=== PATIENT | female | born 1975 ===

== ENCOUNTER 2023-05-09 13:41 | Outpatient (REF) | payer MEDICAID, SELFPAY ==
--- NOTE | ~2023-05-09 | MR_ITS ---
MR BRAIN WITHOUT AND WITH CONTRAST CLINICAL INFORMATION: Epilepsy. COMPARISON: None available at the time of dictation. TECHNIQUE: Multiplanar, multisequence MRI of the brain was obtained before and after the intravenous administration of 8.5 mL Gadavist. FINDINGS: There is no pathologic intracranial enhancement. Incidental small choroid fissure cyst on the right side. No mesial temporal sclerosis. No parenchymal signal abnormality. There is no hydrocephalus, extra-axial surface collection, or herniation. The major flow voids at the skull base are preserved. There is no acute infarct on diffusion-weighted imaging. There is no intracranial hemorrhage on the gradient recalled echo acquisition. The midline structures are normal. There is normal variant 4 mm cerebellar tonsillar ectopia without true Chiari malformation. The craniocervical junction is normal. Osseous marrow signal intensity is homogenous. The visualized soft tissues are unremarkable. MR/MR head/brain wo/w con IMPRESSION: Unremarkable MRI of the brain. No seizure foci and no pathologic enhancement intracranially.
[2023-05-09] MEDS: gadobutroL 10 ML VIAL IVPUSH (15:29)
== END 2023-05-09 13:42 | disposition home or self-care (01) ==
LOC: HO.MRI 13:41
PROVIDERS: Visit Provider Psychiatry & Neurology Neurology
DX: G40.909 Epilepsy, unspecified, not intractable, without status epilepticus (principal)
CPT/HCPCS: 70553; A9585

== ENCOUNTER 2023-12-29 07:51 | Outpatient (AMB) | payer MEDICAID, SELFPAY ==
--- NOTE | 2023-12-29 07:53 | A.OFFVIS_ITS ---
Vital Signs 12/29/23 08:05 Height 5 ft 2 in Weight 188 lb 11.451 oz BMI 34.5 BP 120/72 Blood Pressure Location Lt brachial Position Sitting Pulse 69 Pulse Source Pulse Oximeter Pulse Oximetry (%) 96 Oxygen Delivery Method Room Air Intake Visit Reasons: Joint Pain Intake Note: Patient presents for joint pain. Feel pain everywhere. I been in pain for 8 years now. Using Gabapentin 800 mg x3 a day. Medicine works some times. Allergies penicillin Allergy (Mild, Uncoded 12/15/23 14:19) Rash Medication List - Last Reconciled 12/29/23 by Kisha Reyes MD acetaminophen 1,000 mg PO Q6H PRN atorvastatin 40 mg PO DAILY esomeprazole magnesium 40 mg PO QAM gabapentin 400 mg PO TID gabapentin 800 mg PO TID levetiracetam 500 mg PO BID olanzapine 2.5 mg PO BEDTIME propranolol ER 60 mg PO DAILY sertraline 100 mg PO DAILY HPI Comments Details: Patient is a 48-year-old female with hyperlipidemia and depression who presents today for evaluation of polyarthralgias. Patient states that she can last for called being well in her teenage years. On since age 13 she has noted intermittent body and joint pains which has been progressing over the years. She does note that the pain is worse when she is going through psychological stressors. States that some days she feels like she can not even get out of bed and she can not even move. 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 She does report morning stiffness but states that this lasts all day regardless of her movement. She denies Raynaud's, rash, photosensitivity, eye pain or inflammation, oral or nasal ulcers, skin tightening, alopecia. She has 3 children 1 daughter 2 sons, she denies any history of recurrent 2nd trimester losses or preeclampsia. She denies any history of VTE No family history of any autoimmune disease such as rheumatoid arthritis or lupus. But she does have a sister that also has fibromyalgia. [facility] Medical History (Updated 12/29/23 @ 08:46 by Kisha Reyes MD) Polyarthralgia Family History (Updated 12/29/23 @ 08:04 by GRAYSON Garcia) Father Cancer Mother Diabetes Fibromyalgia Alzheimer dementia Social History (Updated 12/29/23 @ 08:05 by GRAYSON Garcia) Household Members: Children Housing: Apartment Alcohol intake: current Comment: Occassionally Patient Tobacco Use Status: Never used Tobacco [facility] Medical History (Updated 12/29/23 @ 08:46 by Kisha Reyes MD) Polyarthralgia Family History (Updated 12/29/23 @ 08:04 by GRAYSON Garcia) Father Cancer Mother Diabetes Fibromyalgia Alzheimer dementia Social History (Updated 12/29/23 @ 08:05 by GRAYSON Garcia) Household Members: Children Housing: Apartment Alcohol intake: current Comment: Occassionally Patient Tobacco Use Status: Never used Tobacco Review of Systems Const Details: Review of Systems Constitutional: Denies fever, chills, weight loss ENT: Denies vision changes, eye pain or eye redness, dental caries, dry mouth GI: Denies nausea, vomiting, diarrhea, abdominal pain, change in BM Pulm: Denies SOB, TAM, hemoptysis, wheezing Cards: Denies chest pain, palpitations Skin: Denies Raynaud's, rash, nail changes, photosensitivity, 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 Denies joint swelling, muscle weakness, bone pain All other systems reviewed and are unremarkable except noted above Physical Exam Vital Signs: Last Vital Signs Pulse 69 12/29/23 08:05 BP 120/72 12/29/23 08:05 Pulse Ox 96 12/29/23 08:05 Oxygen Delivery Method Room Air 12/29/23 08:05 BMI result Body Mass Index 34.5 Const Other: Physical Examination Patient well appearing Able to rise from chair without support. But complained of pain to her legs. ?Gait normal. Constitutional: ?Mucous membranes pink and moist patient alert and cooperative. No oral or nasal ulcers noted. HEENT: ?Conjunctiva and sclera clear. ?Pupils equal round and reactive to light. ?No lymphadenopathy. ?Normal dentition. Resp: ?Normal respiratory effort and able to speak in complete sentences. ?Clear to auscultation bilaterally. ?No crackles, rales, rhonchi, wheezes heard. Cards: ?Regular rate and rhythm. ?S1 and S2 heard no murmurs. ?Radial pulses intact bilaterally MSK: ?No deformity noted. There was some mild swelling to her PIP is throughout bilateral hands. No obvious warmth however there was tenderness to palpation of the MCPs on the right and left hand. This was in addition to pain when palpating any other part of her hand but she specifically noted pain when palpating the MCPs. ?Able to have full range of motion in all joints though this was limited a bit by pain. Fibromyalgia tender points positive. Positive squeeze test and MTPs tender to palpation bilateral feet Skin: Normal nail fold capillaries General: no acute distress Results Reviewed Results Reviewed: No results in chart to review Assessment & Plan Assessment & Plan (1) Polyarthralgia: Code(s): M25.50 - Pain in unspecified joint Category: Medical Plan: Patient is a 48-year-old female who is here for evaluation of whole-body pain. She definitely has a diagnosis of fibromyalgia given her poor sleep hygiene, pain worse with psychological stressors, and positive fibromyalgia tender points. However given the significant tenderness of her MCPs and MTPs there is concern that there may be an underlying inflammatory process. As such will check for inflammatory markers as well as autoimmune serologies including rheumatoid factor and anti CCP. Low suspicion of lupus but will still check ANDIE without VARINDER panel. Low suspicion of antiphospholipid syndrome with that be thrombotic or obstetric given no history of unprovoked thrombosis or recurrent losses. Discussed with patient at length the possibility that she may just have a diagnosis of fibromyalgia and that this is a difficult disease to treat. However given her significant pain today we will give a trial of Medrol 12 mg for 1 week then 8 mg for 1 week then 4 mg for 1 week then stop which is equivalent to 15 mg of prednisone for 1 week then 10 mg of prednisone for 1 week then 5 mg of prednisolone for 1 week then stop. Will see patient in 2 weeks to discuss lab results as well as x-rays. (2) Fibromyalgia: Code(s): M79.7 - Fibromyalgia Plan: Patient has a diagnosis of fibromyalgia based on her poor sleep hygiene, positive fibromyalgia tender points, worsening pain with physiological stressors. Information given about fibromyalgia. Had a long discussion with patient about the diagnosis of fibromyalgia and how it is mainly managed by conservative means and not medication. We will further discuss treatment after her trial of prednisone and the blood work. 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 Thyroid Stimulating Hormone Today M1.90 - Unspecified osteoarthritis, unspecified site, M25.50 - Pain in unspecified joint, M79.7 - Fibromyalgia UA w Microscopic Today M1.90 - Unspecified osteoarthritis, unspecified site, M25.50 - Pain in unspecified joint, M79.7 - Fibromyalgia Protein Creatinine Ratio, Ur Today M1.90 - Unspecified osteoarthritis, unspecified site, M25.50 - Pain in unspecified joint, M79.7 - Fibromyalgia XR hand wrist LT Today M1.90 - Unspecified osteoarthritis, unspecified site, M25.50 - Pain in unspecified joint, M79.7 - Fibromyalgia XR hand wrist RT Today M1.90 - Unspecified osteoarthritis, unspecified site, M25.50 - Pain in unspecified joint, M79.7 - Fibromyalgia XR foot LT min 3V Today M1.90 - Unspecified osteoarthritis, unspecified site, M25.50 - Pain in unspecified joint, M79.7 - Fibromyalgia Hemoglobin A1c Today M1.90 - Unspecified osteoarthritis, unspecified site, M25.50 - Pain in unspecified joint, M79.7 - Fibromyalgia Rheumatoid Factor Today M1.90 - Unspecified osteoarthritis, unspecified site, M25.50 - Pain in unspecified joint, M79.7 - Fibromyalgia Comprehensive Met. Panel Today M1.90 - Unspecified osteoarthritis, unspecified site, M25.50 - Pain in unspecified joint, M79.7 - Fibromyalgia Erythrocyte Sedimentation Rate Today M1. - Unspecified osteoarthritis, unspecified site, M25.50 - Pain in unspecified joint, M79.7 - Fibromyalgia C Reactive Protein Today M1.90 - Unspecified osteoarthritis, unspecified site, M25.50 - Pain in unspecified joint, M79.7 - Fibromyalgia ANDIE Reflex Titer and Pattern Today M1.90 - Unspecified osteoarthritis, unspecified site, M25.50 - Pain in unspecified joint, M79.7 - Fibromyalgia XR foot RT min 3V Today M1.90 - Unspecified osteoarthritis, unspecified site, M25.50 - Pain in unspecified joint, M79.7 - Fibromyalgia Cyclic Citrullinated Peptide Today M19.90 - Unspecified osteoarthritis, unspecified site, M25.50 - Pain in unspecified joint, M79.7 - Fibromyalgia Medications: New methylprednisolone (Medrol) Take 3 tablets daily for 7 days then take 2 tablets daily for 7 days then take 1 tablet daily for 7 days 4 mg PO DAILY 4 weeks 28 tabs 0RF joint pain Coding Level of Care Code New Pt Level 5 (84940) Diagnoses Polyarthralgia M25.50 Fibromyalgia M79.7
[2023-12-29 08:05] VITALS: BP 120/72; PULSE 69; O2SAT 96; BMI 34.5
== END 2023-12-29 08:50 | disposition home or self-care (01) ==
PROVIDERS: PCP Nurse Practitioner Family; Referring Provider Nurse Practitioner Family; Visit Provider Student in an Organized Health Care Education/Training Program
DX: M79.7 Fibromyalgia (principal); M25.59 Pain in other specified joint
CPT/HCPCS: 99205

== ENCOUNTER 2023-12-29 07:51 | Outpatient (REF) | payer MEDICAID, SELFPAY ==
--- NOTE | ~2023-12-29 | XR_ITS ---
EXAMINATION: XR FOOT, RIGHT CLINICAL INFORMATION: M25.50 - Pain in unspecified joint COMPARISON: None available. TECHNIQUE: AP, lateral, and oblique views of the right foot. FINDINGS: No fracture, dislocation, or suspicious bone lesion. There is normal alignment. No subluxation. Normal plantar arch. There are mild osteoarthritis noted at the first MTP joint and interphalangeal joint of the hallux. Mild spurring of the medial eminence of the first metatarsal head, in keeping with small bunion. Otherwise, the midfoot, hindfoot, forefoot appear normal. There is a tiny dorsal and tiny plantar calcaneal spur. No soft tissue abnormalities. XR/XR foot RT min 3V IMPRESSION: 1. No acute findings right foot. 2. Mild osteoarthritis in the interphalangeal joint of the hallux, and first MTP joint. Small bunion. 2. Tiny dorsal and plantar calcaneal spurs. Electronically signed by: Jack Andino MD 03/08/2024 01:18 PM [facility]
--- NOTE | ~2023-12-29 | XR_ITS ---
EXAMINATION: XR HAND/WRIST, LEFT CLINICAL INFORMATION: M25.50 - Pain in unspecified joint COMPARISON: None available. TECHNIQUE: PA, lateral, oblique, and scaphoid views of the left hand and wrist. FINDINGS: No fracture, dislocation, or suspicious bone lesion. Normal alignment of the hand and wrist. Carpal bones intact, normally aligned. Joint spaces preserved. No periarticular osteopenia or evidence of erosions. Scaphoid views normal. Normal soft tissues. XR/XR hand wrist LT IMPRESSION: Normal radiographs of the left hand and wrist. Electronically signed by: Jack Andino MD 03/08/2024 01:23 PM [facility]
--- NOTE | ~2023-12-29 | XR_ITS ---
EXAMINATION: XR FOOT, LEFT CLINICAL INFORMATION: M25.50 - Pain in unspecified joint COMPARISON: None available. TECHNIQUE: AP, lateral, and oblique views of the left foot. FINDINGS: No fracture, dislocation, or suspicious bone lesion. There is normal alignment. No subluxation. Normal plantar arch. There are mild osteoarthritis noted at the first MTP joint and interphalangeal joint of the hallux. Otherwise, the midfoot, hindfoot, forefoot appear normal. There is a small dorsal and small plantar calcaneal spur. No soft tissue abnormalities. XR/XR foot LT min 3V IMPRESSION: 1. No acute findings left foot. 2. Mild osteoarthritis in the interphalangeal joint of the hallux, and first MTP joint. 2. Small dorsal and plantar calcaneal spurs. Electronically signed by: Jack Andino MD 03/08/2024 01:16 PM [facility]
--- NOTE | ~2023-12-29 | XR_ITS ---
EXAMINATION: XR HAND/WRIST, RIGHT CLINICAL INFORMATION: M25.50 - Pain in unspecified joint COMPARISON: None available. TECHNIQUE: PA, lateral, and oblique views of the right hand and wrist. FINDINGS: No fracture, dislocation, or suspicious bone lesion. Normal alignment of the hand and wrist. Carpal bones intact, normally aligned. Joint spaces preserved. No periarticular osteopenia or evidence of erosions. Very mild osteoarthritis in the STT joints. Scaphoid view is normal. Normal soft tissues. XR/XR hand wrist RT IMPRESSION: 1. No acute findings of the right hand and wrist. 2. Very mild osteoarthritis of STT joints. Electronically signed by: Jack Andino MD 03/08/2024 01:30 PM [facility]
[2023-12-29 09:27] LABS: MANUAL DIFF FLAG NO
[2023-12-29 09:34] LABS: Basophils Percent Auto 0.6 % (0-2); Eosinophils Absolute Auto 0.3 X10*3/uL (0.0-0.4); Eosinophils Percent Auto 4.6 % (0-4); Hemoglobin 11.5 g/dl (12.0-16.0); Imm Gran Abs Auto 0.03 X10*3/uL (0.00-0.03); Imm Gran Pct Auto 0.6 % (0.0-0.4); Lymphocytes Absolute Auto 2.4 X10*3/uL (1.2-4.9); Lymphocytes Percent Auto 43.6 % (20-40); Mean Corpuscular HGB Conc 31.9 g/dl (31.0-35.0); Mean Corpuscular Volume 87.6 fL (80.0-98.0); Mean Platelet Volume 11.5 fL (9.4-12.3); Monocytes Absolute Auto 0.4 X10*3/uL (0.1-1.2); Monocytes Percent Auto 8.2 % (2-11); Neutrophils Absolute Auto 2.3 x10*3/uL (2.0-8.3); Neutrophils Percent Auto 42.4 % (45-73); Platelet Count 231 X10*3/uL (160-400); Red Blood Count 4.11 X10*6/uL (4.20-5.50); Red Cell Distribution Width 12.8 % (11.0-16.0); White Blood Count 5.4 X10*3/uL (4.8-10.8)
[2023-12-29 10:07] LABS: Estimated Average Glucose 128 mg/dL; Hemoglobin A1c % 6.1 % (<6.0)
[2023-12-29 10:13] LABS: Erythrocyte Sedimentation Rate 23 MM/HR (0-20)
[2023-12-29 10:15] LABS: Alanine Aminotransferase 12 U/L (0-31); Albumin Level 4.2 g/dL (3.5-5.0); Alkaline Phosphatase 71 U/L (39-117); Anion Gap 10 (12-20); Aspartate Amino Transferase 14 U/L (5-31); Bilirubin Total 0.4 mg/dL (0.0-1.0); Blood Urea Nitrogen 11 mg/dL (9-16); C Reactive Protein 0.23 mg/dL (< or = 0.50); Calcium 9.5 mg/dL (8.4-10.2); Carbon Dioxide 30 mmol/L (22-29); Chloride 106 mmol/L (96-108); Estimated Glomerular Filt Rate > 60; Glucose Random 119 mg/dL (60-115); Potassium 3.9 mmol/L (3.3-5.1); Sodium 142 mmol/L (135-145); Total Protein 7.4 g/dL (6.5-8.0)
[2023-12-29 10:18] LABS: Rheumatoid Factor < 13.0 IU/mL (<15.0)
[2023-12-29 10:30] LABS: Thyroid Stimulating Hormone 0.98 uIU/mL (0.32-4.0)
[2023-12-29 10:44] LABS: Appearance Urine Clear; Color Urine Yellow; Glucose Urine UA Negative (Negative); Leukocyte Esterase Urine Trace (Negative); Nitrite Urine Negative (Negative); PH 6.5 (5.0-9.0); Specific Gravity - Urine 1.025 (1.005-1.025); UMIC TRIGGER UA YES; Urine Blood Negative (Negative); Urine Ketones Negative (Negative); Urine Protein Negative (Neg-Trace)
[2023-12-29 10:50] LABS: Bacteria Urine None Seen (None Seen); Hyaline Casts Urine 0-2 /LPF (0-2); RBC Urine 0-2 /HPF (0-2); Squamous Epithelial Cell Urine 0-2 /HPF (0-2)
[2023-12-29 11:20] LABS: Creatinine Urine 191.39 mg/dL; Protein/Creatinine Ratio, Ur 0.05 (<0.2); Total Protein Urine Random 10 mg/dL (<12)
[2024-01-01 14:59] LABS: Anti Nuclear Antibody Screen NEGATIVE (NEGATIVE)
[2024-01-02 13:09] LABS: Cyclic Citrullinated Peptide <16 UNITS
== END 2023-12-29 07:52 | disposition home or self-care (01) ==
LOC: HO.XRAY 07:51
PROVIDERS: PCP Nurse Practitioner Family; Referring Provider Nurse Practitioner Family; Visit Provider Student in an Organized Health Care Education/Training Program
DX: M25.50 Pain in unspecified joint (principal); M19.90 Unspecified osteoarthritis, unspecified site; M79.7 Fibromyalgia; Z79.899 Other long term (current) drug therapy
CPT/HCPCS: 36415; 73110; 73130; 73630; 80053; 81001; 82570; 83036; 84156; 84443; 85025; 85652; 86038; 86140; 86200; 86431; 99202

== ENCOUNTER → 2023-12-29 09:30 | Outpatient (BNV) | payer MEDICAID, SELFPAY | PROVIDERS: PCP Nurse Practitioner Family; Referring Provider Nurse Practitioner Family; Visit Provider Radiology Diagnostic Radiology | DX: M79.671 Pain in right foot (principal); M79.672 Pain in left foot | CPT/HCPCS: 73630 ==

== ENCOUNTER 2024-01-16 08:10 | Outpatient (AMB) | payer MEDICAID, SELFPAY ==
[2024-01-16 08:12] VITALS: BP 122/72; PULSE 62; O2SAT 97; BMI 34.2
--- NOTE | 2024-01-16 08:12 | MHC.OFFVIS ---
Vital Signs 01/16/24 08:12 Height 5 ft 2 in Weight 187 lb BMI 34.2 BP 122/72 Blood Pressure Location Lt brachial Position Sitting Pulse 62 Pulse Source Pulse Oximeter Pulse Oximetry (%) 97 Oxygen Delivery Method Room Air Intake Visit Reasons: joint pain Intake Note: Patient is a new patient externally referred for joint pain. She states it's been going on for years, and has fibromyalgia, too. She takes Gabapentin and Ibuprofen for the pain. Allergies penicillin Allergy (Mild, Uncoded 01/16/24 08:15) Rash Medication List - Last Reconciled 01/16/24 by Kisha Reyes MD acetaminophen 1,000 mg PO Q6H PRN atorvastatin 40 mg PO DAILY esomeprazole magnesium 40 mg PO QAM gabapentin 400 mg PO TID gabapentin 800 mg PO TID levetiracetam 500 mg PO BID methylprednisolone (Medrol) 4 mg PO DAILY 4 weeks olanzapine 2.5 mg PO BEDTIME propranolol ER 60 mg PO DAILY sertraline 100 mg PO DAILY HPI Comments Details: Patient is a 48-year-old female with hyperlipidemia and depression who returns today for evaluation of polyarthralgias. Interval History: Patient seen 12/29/2023 with myself. At that time she was referred for polyarthralgias. Evaluation at that time revealed some tenderness to palpation of her PIPs and MCPs as well as positive fibromyalgia tender points. Given her concomitant MCP involvement she was trialled on a Medrol Dosepak. And labs were ordered. Today she returns stating that the Medrol did not help. She would have to take it with 800 mg ibuprofen to get any relief. Her symptoms are still the same reporting poor sleep, widespread pain, fatigue with concomitant psychosocial stressors partly because of her pain and inability to work. Rheumatologic History: Patient presented for evaluation 12/29/23. At that time she reported a longstanding history of intermittent body and joint pains since age of 13. 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 She denies Raynaud's, rash, photosensitivity, eye pain or inflammation, oral or nasal ulcers, skin tightening, alopecia. She has 3 children 1 daughter 2 sons, she denies any history of recurrent 2nd trimester losses or preeclampsia. She denies any history of VTE No family history of any autoimmune disease such as rheumatoid arthritis or lupus. But she does have a sister that also has fibromyalgia. 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 major depressive disorder Hyperthyroidism Multiple thyroid nodules Colon cancer screening Enlarged liver Kidney cysts Pap smear for cervical cancer screening Mixed hyperlipidemia Prediabetes Cough Acute gastritis without bleeding Radiculopathy of lumbar region Adjustment disorder with mixed anxiety and depressed mood Obesity Epigastric pain PTSD (post-traumatic stress disorder) Polyarthralgia Family History Father Cancer Mother Diabetes Fibromyalgia Alzheimer dementia Social History Household Members: Children Housing: Apartment Alcohol intake: current Comment: Occassionally Patient Tobacco Use Status: Never used Tobacco Review of Systems Const Details: Review of Systems Constitutional: Denies fever, chills, weight loss ENT: Denies vision changes, eye pain or eye redness, dental caries, dry mouth GI: Denies nausea, vomiting, diarrhea, abdominal pain, change in BM Pulm: Denies SOB, TAM, hemoptysis, wheezing Cards: Denies chest pain, palpitations Skin: Denies Raynaud's, rash, nail changes, photosensitivity, [employer] 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 ?Gait normal. Constitutional Mucous membranes pink and moist patient alert and cooperative HEENT Conjunctiva and sclera clear. ?Pupils equal round and reactive to light. ?No lymphadenopathy. ?Normal dentition. Respiratory System Normal respiratory effort and able to speak in complete sentences. ?Clear to auscultation bilaterally. ?No crackles, rales, rhonchi, wheezes heard. Cardiac System Regular rate and rhythm. ?S1 and S2 heard no murmurs. ?Radial pulses intact bilaterally MSK No deformity, swelling, abnormalities noted to bilateral hands. Patient with widespread pain including joints as well as areas between the joints. Positive fibromyalgia tender points. Results Reviewed Results Reviewed: Laboratory Tests 12/29/23 12/29/23 09:26 09:29 WBC 5.4 RBC 4.11 L Hgb 11.5 L Hct 36.0 L Plt Count 231 ESR 23 H Sodium 142 Potassium 3.9 Chloride 106 Carbon Dioxide 30 H BUN 11 Creatinine 0.78 Calcium 9.5 Total Bilirubin 0.4 AST 14 ALT 12 Alkaline Phosphatase 71 C-Reactive Protein 0.23 Total Protein 7.4 Albumin 4.2 TSH 0.98 Urine Color Yellow Urine Appearance Clear Urine pH 6.5 Ur Specific [place] 1.025 Urine Protein Negative Urine Glucose (UA) Negative Urine Ketones Negative Urine Blood Negative Urine Nitrite Negative Protein/Creatinin Ratio 0.05 Rheumatoid Factor < 13.0 Cycl Citrul Peptide IgG <16 ANDIE Screen NEGATIVE X-rays ordered at last visit reviewed. No evidence of joint space narrowing, carpal crowding or erosions to bilateral hands. Also no evidence of erosions or joint space narrowing to bilateral feet. No evidence of chondrocalcinosis in the TFCC. Otherwise normal radiographs of hand and feet Assessment & Plan Assessment & Plan (1) Fibromyalgia: Code(s): M79.7 - Fibromyalgia Category: Medical Plan: #Fibromyalgia Patient with a diagnosis of fibromyalgia. This is confirmed based on her lack of inflammation markers and unremarkable antibody profile. Also her exam is consistent with fibromyalgia. Had a long discussion with patient that fibromyalgia is a difficult disease to treat and there is no medication to treat this disease. Discussed that lifestyle changes is the most important thing for this disease. In the meantime we will stop gabapentin and trial pregabalin as well as cyclobenzaprine to see if this will help with her pain. Ordered a sleep study to rule out obstructive sleep apnea as a cause for poor sleep. We will reach out to her psychiatrist at [facility] about possibly changing her sertraline to duloxetine. We will review in 3 months. Plan I spent 35 minutes reviewing the record and labs, seeing the patient, discussing the treatment plan, contacting [facility] to discuss medication changes and documenting in the medical record Orders: Orders RT home sleep study Today G47.30 - Sleep apnea, unspecified Referrals Pain Management Referral M79.7 - Fibromyalgia Medications: New cyclobenzaprine 5 mg PO BEDTIME 30 tabs 0RF M79.7 - Fibromyalgia pregabalin Take 1 tablet at bedtime for 2 weeks then 2 tablets for 2 weeks then 3 tablets 60 days 150 mg (3 x 50 mg) PO BEDTIME 270 caps 0RF 90 days M79.7 - Fibromyalgia Discontinued methylprednisolone (Medrol) Take 3 tablets daily for 7 days then take 2 tablets daily for 7 days then take 1 tablet daily for 7 days Discontinued Reason: None 4 mg PO DAILY 4 weeks 28 tabs 0RF joint pain Coding Level of Care Code Est Pt Level 4 (38819) Diagnoses Fibromyalgia M79.7
== END 2024-01-16 08:58 | disposition home or self-care (01) ==
PROVIDERS: PCP Nurse Practitioner Family; Visit Provider Student in an Organized Health Care Education/Training Program
DX: M79.7 Fibromyalgia (principal)
CPT/HCPCS: 99214

== ENCOUNTER → 2024-01-16 08:10 | Outpatient (BNVA) | payer MEDICAID, SELFPAY | PROVIDERS: PCP Nurse Practitioner Family; Visit Provider Student in an Organized Health Care Education/Training Program | DX: M79.7 Fibromyalgia (principal); G47.30 Sleep apnea, unspecified; M25.50 Pain in unspecified joint | CPT/HCPCS: 99212 ==

== ENCOUNTER 2024-02-01 10:28 | Outpatient (AMB) | payer MEDICAID, SELFPAY ==
--- NOTE | 2024-02-01 10:31 | A.OFFVIS_ITS ---
Vital Signs 02/01/24 10:39 Height 5 ft 2 in Weight 188 lb 4 oz BMI 34.4 BP 118/64 Blood Pressure Location Rt brachial Position Sitting Pulse 54 Pulse Source Pulse Oximeter Pulse Oximetry (%) 99 Oxygen Delivery Method Room Air Intake Visit Reasons: Fibromyalgia Intake Note: Pain today 11/10 Train Control Electronic Technician Required: No Accompanied by: Self / Same As Patient Allergies Penicillins Allergy (Unknown, Verified 02/01/24 10:39) Rash HPI HPI Fibromyalgia: Details: Patient is a pleasant 48-year-old female with history of depression, anxiety, seizures, h/o asthma, PTSD, and polyarthralgias presents today for initial evaluation for fibromyalgia. She has been referred to our office by Rheumatology provider. Patient reports widespread body pain affecting her upper and lower extremities but most significantly lower back pain. Denies any recent trauma, injury or falls. Patient reports fibromyalgia flare ups are most severe with psychological stresses, movements, and cold weather changes. 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 Low back pain is mostly axial and does not radiate to the lower extremities but reports neuropathic pain in her hands and legs bilaterally. Reports chronic daily fatigue and shortness of breath with exertion. Reports difficulty falling and staying asleep and has pending home sleep study. Reports remote asthma treated with inhalers. Patient reports she has been taking gabapentin with mild benefit and recently has on pregabalin and cyclobenzaprine. Her last seizure activity was about 6 months ago and currently has been off work for the past 3 weeks due to pain. She completed physical therapy over 18 years ago. Denies any spine surgery or injections. Pain is constant and is rated 10/10. Patient has attempted self stress management and well-balanced diet with partial improvement. She sees Mental Health [facility] provider at [facility], denies previous cognitive behavioral therapy. Denies any fever or chills, unintentional weight loss, chest pain, infection, rash, swelling, cough, weakness, footdrop, bladder or bowel dysfunction or saddle anesthesia. Location: Widespread body pain, low back pain, multiple joint pain Duration: Chronic pain since 2003 Characteristics of symptom or complaint: Aching, throbbing, stabbing, sharp, tightness, shooting, jumping, pinching Aggravating or associated factors: Psychological stress, cold weather, movements, ADLs, cold applications Relieving factors: Rest, heat, pregabalin, ibuprofen, cyclobenzaprine, well- balanced diet Treatment: PT over 18 years ago, stress management [facility] Medical History (Updated 02/01/24 @ 21:16 by LEX Woodson) Chronic pain syndrome Fibromyalgia Nonintractable generalized 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 status epilepticus Moderate episode of recurrent major depressive disorder Hyperthyroidism Multiple thyroid nodules Colon cancer screening Enlarged liver Kidney cysts Pap smear for cervical cancer screening Mixed hyperlipidemia Prediabetes Cough Acute gastritis without bleeding Radiculopathy of lumbar region Adjustment disorder with mixed anxiety and depressed mood Obesity Epigastric pain PTSD (post-traumatic stress disorder) Polyarthralgia Family History Father Cancer Mother Diabetes Fibromyalgia Alzheimer dementia Social History Household Members: Children Housing: Apartment Alcohol intake: current Comment: Occassionally Patient Tobacco Use Status: Never used Tobacco Review of Systems Const All systems reviewed & are unremarkable except as noted in HPI and below Physical Exam Vital Signs: Last Vital Signs Pulse 54 02/01/24 10:39 BP 118/64 02/01/24 10:39 Pulse Ox 99 02/01/24 10:39 Oxygen Delivery Method Room Air 02/01/24 10:39 BMI result Body Mass Index 34.4 General: Appears afebrile. Alert and oriented. Mood and affect appropriate. Follows and participates in conversation appropriately. Respiratory effort is unlabored. No cough. Able to transition from sit to stand unassisted. Ambulates with bilaterally normal heel strike and toe off. General: Yes no CVA tenderness Back/Spine/Pelvis Other: Patient is able to walk and stand on heels and tip toes with no difficulties demonstrating good motor tone. No limping. Can flex forward to 70-75 degrees and extend to 5-10 degrees before experiencing lumbar pain. Demonstrates 5/5 strength of quadriceps bilaterally as well as flexion/dorsiflexion of bilateral feet against resistance. 2+ pedal pulses bilaterally. Straight leg rise with dorsiflexion is negative bilaterally. +2 patellar and achilles reflexes bilaterally. Facet loading test positive bilaterally. Stephanie sign, Haider?s, Pelvic compression and Stinchfield tests are positive bilaterally. No groin pain with I/E hip rotations. Valsalva maneuver negative. Multiple widespread TTPs 16 bilaterally, including upper and lower extremities. Back: no CVA tenderness Cervical Spine: cervical ROM normal, cervical muscular tenderness, No Cervical spine tenderness and No step off deformity Thoracic/Lumbar Spine: thoracic and lumbar spine normal to inspection, No Thoracic/lumbar spine scar(s), Lasegue's sign negative, straight leg raise negative bilaterally, paraspinal muscle tenderness, No thoracic spinal tenderness and lumbar spinal tenderness at L4 and at L5 Pelvis: buttock tenderness bilaterally Sacroiliac joints: bilaterally tender to palpation Results Reviewed Results Reviewed: No imaging results are available for review. Assessment & Plan Assessment & Plan (1) History of asthma: Code(s): Z87.09 - Personal history of other diseases of the respiratory system Category: Medical (2) Shortness of breath on exertion: Code(s): R06.02 - Shortness of breath Category: Medical (3) Low back pain: Code(s): M54.50 - Low back pain, unspecified Category: Medical (4) Fibromyalgia: Code(s): M79.7 - Fibromyalgia Category: Medical (5) Polyarthralgia: Code(s): M25.50 - Pain in unspecified joint Category: Medical (6) Chronic pain syndrome: Code(s): G89.4 - Chronic pain syndrome Category: Medical Plan Lumbar spine imaging to assess degree of degenerative changes, any subluxation, listhesis, compression fractures or pars defects. Briefly discussed interventional treatments for axial low back pain including peripheral nerve stimulation, RFA and therapeutic vs diagnostic injections. Recommend physical therapy and establish a regular home exercise program. Script provided for PT today. Pulmonology referral for further evaluation of shortness of breath with exertion and recent eosinophils and ESR elevation. Psychology referral to current provider to consider cognitive behavioral therapy for fibromyalgia as well as anxiety and depression. We also discussed available apps for self-directed CBT therapy. Scripts provided for lidocaine patches and diclofenac gel. Side effects and precautions discussed with patient. Encouraged daily physical activity, sleep hygiene, aqua therapy, acupuncture, weight optimization, consider Mediterranean diet, adequate hydration, and good posture. All questions and concerns have been answered and patient agreed with the treatment plan. Follow-up for x-ray results and sooner as needed. Orders: Orders XR lumbar spine 4V min Today M54.50 - Low back pain, unspecified PT Evaluation and Treatment Today M25.50 - Pain in unspecified joint, M54.50 - Low back pain, unspecified, M79.7 - Fibromyalgia Referrals Psychology Referral M79.7 - Fibromyalgia Pulmonology Referral R06.02 - Shortness of breath, Z87.09 - Personal history of other diseases of the respiratory system Medications: New lidocaine 5% leave on most painful area for up to 12 hrs topically daily; 30 days 30 ea 0RF pain M54.50 - Low back pain, unspecified diclofenac sodium 1% (Arthritis Pain (diclofenac)) apply to single knee, ankle, foot; for foot includes sole/toes/top of foot 4 grams topical QID 30 days 100 grams 3RF pain M25.50 - Pain in unspecified joint Coding Level of Care Code New Pt Level 4 (60955) Diagnoses History of asthma Z87.09 Shortness of breath on exertion R06.02 Low back pain M54.50 Fibromyalgia M79.7 Polyarthralgia M25.50 Chronic pain syndrome G89.4
[2024-02-01 10:39] VITALS: BP 118/64; PULSE 54; O2SAT 99; BMI 34.4
== END 2024-02-01 11:24 | disposition home or self-care (01) ==
LOC: HO.PMC 10:29
PROVIDERS: PCP Nurse Practitioner Family; Referring Provider Student in an Organized Health Care Education/Training Program; Visit Provider Nurse Practitioner Family
DX: Z87.09 Personal history of other diseases of the respiratory system (principal); R06.02 Shortness of breath; M54.50 Low back pain, unspecified; M79.7 Fibromyalgia; M25.50 Pain in unspecified joint; G89.4 Chronic pain syndrome
CPT/HCPCS: 99204

== ENCOUNTER → 2024-02-01 10:28 | Outpatient (BNVA) | payer MEDICAID, SELFPAY | PROVIDERS: PCP Nurse Practitioner Family; Referring Provider Student in an Organized Health Care Education/Training Program; Visit Provider Nurse Practitioner Family | DX: M79.7 Fibromyalgia (principal); M54.16 Radiculopathy, lumbar region; M54.50 Low back pain, unspecified; G89.4 Chronic pain syndrome; M25.50 Pain in unspecified joint; R06.02 Shortness of breath; Z87.09 Personal history of other diseases of the respiratory system | CPT/HCPCS: 99212 ==

== ENCOUNTER 2024-02-02 13:02 | Outpatient (REF) | payer MEDICAID, SELFPAY ==
--- NOTE | ~2024-02-02 | XR_ITS ---
EXAMINATION: XR LUMBOSACRAL SPINE CLINICAL INFORMATION: M54.50 - Low back pain, unspecified COMPARISON: None available. TECHNIQUE: AP, lateral, cone-down lateral, and both oblique views of the lumbosacral spine. FINDINGS: Normal bone mineralization. No fracture, traumatic subluxation, or suspicious bony lesion. No compression deformity. There is a very minimal levoconvex scoliosis centered at L2-3. There is a normal lordosis. There is a minimal 2 mm degenerative retrolisthesis of L4 upon L5. Alignment is otherwise anatomic. Mild diffuse disc space degeneration present. Early degenerative facet changes L4-S1. Oblique views demonstrate no evidence of pars defects and normal facet alignment. Mild degenerative changes in both SI joints. No soft tissue abnormalities detected. XR/XR lumbar spine 4V min IMPRESSION: 1. No acute lumbar spine findings. 2. Mild spondylosis as described. Electronically signed by: Jack Andino MD 03/08/2024 01:33 PM PRETTY
[2024-02-02 14:28] LABS: MANUAL DIFF FLAG NO
[2024-02-02 15:12] LABS: Basophils Percent Auto 0.6 % (0-2); Eosinophils Absolute Auto 0.2 X10*3/uL (0.0-0.4); Eosinophils Percent Auto 2.9 % (0-4); Hematocrit 34.2 % (37.0-47.0); Hemoglobin 11.2 g/dl (12.0-16.0); Imm Gran Abs Auto 0.04 X10*3/uL (0.00-0.03); Imm Gran Pct Auto 0.6 % (0.0-0.4); Lymphocytes Absolute Auto 3.5 X10*3/uL (1.2-4.9); Lymphocytes Percent Auto 53.2 % (20-40); Mean Corpuscular HGB Conc 32.7 g/dl (31.0-35.0); Mean Corpuscular Hemoglobin 28.9 pg (27.0-33.0); Mean Corpuscular Volume 88.1 fL (80.0-98.0); Mean Platelet Volume 12.4 fL (9.4-12.3); Monocytes Absolute Auto 0.5 X10*3/uL (0.1-1.2); Neutrophils Absolute Auto 2.3 x10*3/uL (2.0-8.3); Neutrophils Percent Auto 34.7 % (45-73); Platelet Count 235 X10*3/uL (160-400); Red Blood Count 3.88 X10*6/uL (4.20-5.50); White Blood Count 6.7 X10*3/uL (4.8-10.8)
[2024-02-05 20:19] LABS: Class Alternaria alternata 0; Class Aspergillus fumigatus 0; Class Bermuda Grass 0; Class Birch 0; Class Cat Dander 0; Class Cladosporium herbarum 0; Class Cockroach 0; Class Common Ragweed 4; Class Cottonwood 0; Class Derm. pterony 0; Class Dermatophagoides farinae 0; Class Dog Dander 0; Class Elm 0; Class Maple Box Elder 0/1; Class Mountain Cedar 0; Class Mouse Urine Protein 2; Class Mugwort 0; Class Oak 0; Class Penicillium crysogenum 0; Class Rough Pigweed 0; Class Sheep Sorrel 0; Class Sycamore 0; Class Timothy Grass 0; Class Walnut Tree 0; Class White Ash 0; Class White Mulberry 0; D001 IgE D pteronyssinus <0.10 kU/L; D002 - IgE D farinae <0.10 kU/L; E001 - IgE Cat Dander <0.10 kU/L; E005 - IgE Dog Dander <0.10 kU/L; E072-IgE Mouse Urine 2.88 kU/L; G002 IgE Bermuda Grass <0.10 kU/L; G006 - IgE Timothy Grass <0.10 kU/L; I006-IgE Cockroach, German <0.10 kU/L; Immunoglobulin E 68 kU/L (<OR=114); M001 IgE Penicillium chrysogen <0.10 kU/L; M002 - IgE Cladosporium herbar <0.10 kU/L; M003 - IgE Aspergillus fumigat <0.10 kU/L; M006 - IgE Alternaria alternat <0.10 kU/L; T001 IgE Maple/Box Elder 0.14 kU/L; T003 IgE Common Silver Birch <0.10 kU/L; T006 - IgE Cedar, Mountain <0.10 kU/L; T007 - IgE Oak, White <0.10 kU/L; T008 IgE Elm, American <0.10 kU/L; T010 - IgE Walnut <0.10 kU/L; T011 - IgE Maple Leaf Sycamore <0.10 kU/L; T014 - IgE Cottonwood <0.10 kU/L; T015 - IgE Ash, White <0.10 kU/L; T070 - IgE White Mulberry <0.10 kU/L; W006 - IgE Mugwort <0.10 kU/L; W014 IgE Pigweed, Common <0.10 kU/L; W018 IgE Sheep Sorrel <0.10 kU/L
== END 2024-02-02 13:03 | disposition home or self-care (01) ==
LOC: HO.XRAY 13:02
PROVIDERS: Internal Medicine Pulmonary Disease; Visit Provider Nurse Practitioner Family
DX: Z91.09 Other allergy status, other than to drugs and biological substances (principal); M54.50 Low back pain, unspecified; G47.30 Sleep apnea, unspecified; Z87.09 Personal history of other diseases of the respiratory system
CPT/HCPCS: 36415; 72110; 82785; 85025; 86003; 99202

== ENCOUNTER 2024-02-02 13:07 | Outpatient (AMB) | payer MEDICAID, SELFPAY ==
[2024-02-02 13:15] VITALS: BP 102/62; PULSE 61; O2SAT 96; BMI 34.5
--- NOTE | 2024-02-02 13:15 | A.OFFVIS_ITS ---
Vital Signs 02/02/24 13:15 Height 5 ft 2 in Weight 188 lb 11.198 oz BMI 34.5 BP 102/62 Blood Pressure Location Rt brachial Position Sitting Pulse 61 Pulse Source Doppler Pulse Oximetry (%) 96 Oxygen Delivery Method Room Air Intake Visit Reasons: short of breath Allergies Penicillins Allergy (Unknown, Verified 02/02/24 13:18) Rash HPI HPI short of breath: Details: 48-year-old lady, nonsmoker, with underlying history of asthma albuterol dear and multiple first-degree relatives with asthma, also being worked up for sleep apnea referred for pulmonary evaluation. Patient states that she is mostly interested in evaluation of her sleep concerns that include primary insomnia and inability to stay asleep. She also complains of daytime somnolence. Her sleep study is pending. Patient denies having significant problem with asthma. She states that she uses albuterol MDI intermittently as needed. She does complain of environmental allergies. 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 status epilepticus Moderate episode of recurrent major depressive disorder Hyperthyroidism Multiple thyroid nodules Colon cancer screening Enlarged liver Kidney cysts Pap smear for cervical cancer screening Mixed hyperlipidemia Prediabetes Cough Acute gastritis without bleeding Radiculopathy of lumbar region Adjustment disorder with mixed anxiety and depressed mood Obesity Epigastric pain PTSD (post-traumatic stress disorder) Polyarthralgia Family History Father Cancer Mother Diabetes Fibromyalgia Alzheimer dementia Social History Household Members: Children Housing: Apartment Alcohol intake: current Comment: Occassionally Patient Tobacco Use Status: Never used Tobacco Review of Systems Const Reports daytime sleepiness and Reports fatigue Resp Reports cough, Denies excessive phlegm production and Denies wheezing Endo Reports fatigue Aller/Immun Denies wheezing Physical Exam Vital Signs: Last Vital Signs Pulse 61 02/02/24 13:15 BP 102/62 02/02/24 13:15 Pulse Ox 96 02/02/24 13:15 Oxygen Delivery Method Room Air 02/02/24 13:15 BMI result Body Mass Index 34.5 Const General: no acute distress and alert Nutritional Appearance: not obese Orientation/consciousness: Other orientation findings ( oriented) HEENT Head: Yes atraumatic Eyes General: appearance normal, both eyes and all related structures Sclerae: sclerae normal EOM: EOMs intact bilaterally Neck Neck: Yes supple Lymphatic: no lymphadenopathy noted Resp Effort & Inspection: normal respiratory effort and no use of accessory muscles Auscultation: clear to auscultation bilaterally Cardio Rate: regular rate Rhythm: regular rhythm Heart sounds: no gallops, no murmurs and no rubs Skin General skin exam: other ( warm) Extrem General: No clubbing, No cyanosis and No edema Assessment & Plan Assessment & Plan (1) Environmental allergies: Code(s): Z91.09 - Other allergy status, other than to drugs and biological substances Category: Medical Plan: Will obtain IgE level, CBC with differential, and RAST panel. (2) Sleep apnea: Code(s): G47.30 - Sleep apnea, unspecified Category: Medical Plan: Sleep study is pending. (3) History of asthma: Code(s): Z87.09 - Personal history of other diseases of the respiratory system Category: Medical Plan: Per patient well controlled on as needed albuterol MDI. Continue current regimen. Orders: Orders Resp Allergy Profile Region I Today Z91.09 - Other allergy status, other than to drugs and biological substances Complete Blood Count Auto Diff Today Z91.09 - Other allergy status, other than to drugs and biological substances Coding Level of Care Code New Pt Level 4 (27958) Diagnoses Environmental allergies Z91.09 Sleep apnea G47.30 History of asthma Z87.09
== END 2024-02-02 13:36 | disposition home or self-care (01) ==
LOC: HO.HPS 13:08
PROVIDERS: PCP Nurse Practitioner Family; Visit Provider Internal Medicine Pulmonary Disease
DX: Z91.09 Other allergy status, other than to drugs and biological substances (principal); G47.30 Sleep apnea, unspecified; Z87.09 Personal history of other diseases of the respiratory system
CPT/HCPCS: 99204

== ENCOUNTER → 2024-02-02 13:41 | Outpatient (BNV) | payer MEDICAID, SELFPAY | PROVIDERS: Visit Provider Radiology Diagnostic Radiology | DX: M54.50 Low back pain, unspecified (principal) | CPT/HCPCS: 72110 ==

== ENCOUNTER 2024-05-22 13:09 | Outpatient (AMB) | payer MEDICAID, SELFPAY ==
--- NOTE | 2024-05-22 13:10 | MHC.OFFVIS ---
Vital Signs 05/22/24 13:20 Height 5 ft 2 in Weight 193 lb 12.581 oz BMI 35.4 BP 100/64 Blood Pressure Location Lt brachial Position Sitting Pulse 54 Pulse Source Pulse Oximeter Pulse Oximetry (%) 95 Oxygen Delivery Method Room Air Intake Visit Reasons: Follow-up pregabalin and cyclobenzaprine. Intake Note: Patient presents for medication follow up. Allergies Penicillins Allergy (Unknown, Verified 05/22/24 13:19) Rash Medication List - Last Reconciled 05/22/24 by Kisha Reyes MD acetaminophen 1,000 mg PO Q6H PRN albuterol sulfate 90 mcg/actuation (Ventolin HFA) 2 puffs inhalation Q6H PRN atorvastatin 40 mg PO DAILY diclofenac sodium 1% (Arthritis Pain (diclofenac)) 4 grams topical QID 30 days duloxetine 120 mg PO DAILY esomeprazole magnesium 40 mg PO QAM famotidine 40 mg PO DAILY ibuprofen 800 mg PO TID PRN levetiracetam 500 mg PO BID lidocaine 5% leave on most painful area for up to 12 hrs topically daily; 30 days olanzapine 2.5 mg PO BEDTIME propranolol ER 60 mg PO DAILY sertraline 100 mg PO DAILY HPI Comments Details: Patient is a 48-year-old female with hyperlipidemia and depression who returns today for follow up Interval History: Patient seen 01/16/2024 with me. At that time she had failed a prednisolone trial and her inflammatory markers as well as antibody profile was normal. Her exam was consistent with fibromyalgia and she was given a pain management referral and started on pregabalin as well as cyclobenzaprine Today, States that pregabalin and cyclobenzaprine not helping Tylenol arthritis helps more Saw pain management Rheumatologic History: Patient presented for evaluation 12/29/23. At that time she reported a longstanding history of intermittent body and joint pains since age of 13. 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 She denies Raynaud's, rash, photosensitivity, eye pain or inflammation, oral or nasal ulcers, skin tightening, alopecia. She has 3 children 1 daughter 2 sons, she denies any history of recurrent 2nd trimester losses or preeclampsia. She denies any history of VTE No family history of any autoimmune disease such as rheumatoid arthritis or lupus. But she does have a sister that also has fibromyalgia. Gabapentin 1200 mg t.i.d.. Not effective Current Rheumatology Medication(s): Pregabalin 150 mg at bedtime Cyclobenzaprine 5 mg at bedtime [facility] Medical History (Updated 02/02/24 @ 13:43 by Jorge Rahman MD) Chronic pain syndrome Fibromyalgia Nonintractable generalized 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 status epilepticus Moderate episode of recurrent major depressive disorder Hyperthyroidism Multiple thyroid nodules Colon cancer screening Enlarged liver Kidney cysts Pap smear for cervical cancer screening Mixed hyperlipidemia Prediabetes Cough Acute gastritis without bleeding Radiculopathy of lumbar region Adjustment disorder with mixed anxiety and depressed mood Obesity Epigastric pain PTSD (post-traumatic stress disorder) Polyarthralgia Family History Father Cancer Mother Diabetes Fibromyalgia Alzheimer dementia Social History Household Members: Children Housing: Apartment Alcohol intake: current Comment: Occassionally Patient Tobacco Use Status: Never used Tobacco Review of Systems Const Details: Review of Systems Constitutional: Denies fever, chills, weight loss ENT: Denies vision changes, eye pain or eye redness, dental caries, dry mouth GI: Denies nausea, vomiting, diarrhea, abdominal pain, change in BM Pulm: Denies SOB, TAM, hemoptysis, wheezing Cards: Denies chest pain, palpitations Skin: Denies Raynaud's, rash, nail changes, photosensitivity, BRINE 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 Well appearing and in no apparent painful distress HEENT Conjunctiva and sclera clear. ?Pupils equal round and reactive to light. ?No lymphadenopathy. ? CHEST/RESPIRATORY SYSTEM Normal respiratory effort and able to speak in complete sentences. ?Clear to auscultation bilaterally. ?No crackles, rales, rhonchi, wheezes heard. CARDIAC SYSTEM Regular rate and rhythm. ?S1 and S2 heard no murmurs. ?Radial pulses intact bilaterally MSK Hands: ?Good regional property manager strength bilaterally. No deformities noted. ?No synovitis noted to the MCPs, PIPs or DIPs. ?No tenderness to palpation of these joints. Wrists: ?Full range of motion at the wrists without pain. ?No tenderness to palpation or synovitis noted to the wrists. Elbows: Full range of motion without pain. No tenderness, weakness, swelling, increased warmth or erythema. Shoulders: Full range of motion without pain. No tenderness, weakness, swelling, increased warmth or erythema. Hips: Full range of motion without pain. Hip bursa: Tenderness to palpation of bilateral bursa Knees: ?Full range of motion. ?No tenderness, swelling, increased warmth or erythema.?No effusion or crepitations Ankles: Full range of motion. ?No tenderness, swelling, increased warmth or erythema.? Feet: ?Negative squeeze test. ?No tenderness to palpation or swelling of the MTPs. Tender points:?Tenderness to palpation of the bilateral trapezius, supraspinatus, greater trochanters, anterior costochondral junctions, bilateral gluteal areas, bilateral suboccipital muscle insertions SKIN Skin intact without rashes. Results Reviewed Results Reviewed: Laboratory Tests 12/29/23 12/29/23 09:26 09:29 WBC 5.4 RBC 4.11 L Hgb 11.5 L Hct 36.0 L Plt Count 231 ESR 23 H Sodium 142 Potassium 3.9 Chloride 106 Carbon Dioxide 30 H BUN 11 Creatinine 0.78 Calcium 9.5 Total Bilirubin 0.4 AST 14 ALT 12 Alkaline Phosphatase 71 C-Reactive Protein 0.23 Total Protein 7.4 Albumin 4.2 TSH 0.98 Urine Color Yellow Urine Appearance Clear Urine pH 6.5 Ur Specific [place] 1.025 Urine Protein Negative Urine Glucose (UA) Negative Urine Ketones Negative Urine Blood Negative Urine Nitrite Negative Protein/Creatinin Ratio 0.05 Rheumatoid Factor < 13.0 Cycl Citrul Peptide IgG <16 ANDIE Screen NEGATIVE XR Bilateral Feet 12/2023 FINDINGS (Left): No fracture, dislocation, or suspicious bone lesion. There is normal alignment. No subluxation. Normal plantar arch. There are mild osteoarthritis noted at the first MTP joint and interphalangeal joint of the hallux. Otherwise, the midfoot, hindfoot, forefoot appear normal. There is a small dorsal and small plantar calcaneal spur. No soft tissue abnormalities. IMPRESSION: 1. No acute findings left foot. 2. Mild osteoarthritis in the interphalangeal joint of the hallux, and first MTP joint. 2. Small dorsal and plantar calcaneal spurs. FINDINGS (Right): No fracture, dislocation, or suspicious bone lesion. There is normal alignment. No subluxation. Normal plantar arch. There are mild osteoarthritis noted at the first MTP joint and interphalangeal joint of the hallux. Mild spurring of the medial eminence of the first metatarsal head, in keeping with small bunion. Otherwise, the midfoot, hindfoot, forefoot appear normal. There is a tiny dorsal and tiny plantar calcaneal spur. No soft tissue abnormalities. IMPRESSION: 1. No acute findings right foot. 2. Mild osteoarthritis in the interphalangeal joint of the hallux, and first MTP joint. Small bunion. 2. Tiny dorsal and plantar calcaneal spurs. XR Bilateral Hand/Wrist 12/2023 FINDINGS (Right): No fracture, dislocation, or suspicious bone lesion. Normal alignment of the hand and wrist. Carpal bones intact, normally aligned. Joint spaces preserved. No periarticular osteopenia or evidence of erosions. Very mild osteoarthritis in the STT joints. Scaphoid view is normal. Normal soft tissues. FINDINGS (Left): No fracture, dislocation, or suspicious bone lesion. Normal alignment of the hand and wrist. Carpal bones intact, normally aligned. Joint spaces preserved. No periarticular osteopenia or evidence of erosions. Scaphoid views normal. Normal soft tissues. XR L Spine 02/2024 FINDINGS: Normal bone mineralization. No fracture, traumatic subluxation, or suspicious bony lesion. No compression deformity. There is a very minimal levoconvex scoliosis centered at L2-3. There is a normal lordosis. There is a minimal 2 mm degenerative retrolisthesis of L4 upon L5. Alignment is otherwise anatomic. Mild diffuse disc space degeneration present. Early degenerative facet changes L4-S1. Oblique views demonstrate no evidence of pars defects and normal facet alignment. Mild degenerative changes in both SI joints. No soft tissue abnormalities detected. IMPRESSION: 1. No acute lumbar spine findings. 2. Mild spondylosis as described. Assessment & Plan Assessment & Plan (1) Fibromyalgia: Code(s): M79.7 - Fibromyalgia Category: Medical Plan: #Fibromyalgia Patient with a diagnosis of fibromyalgia. This is confirmed based on her lack of inflammation markers and unremarkable antibody profile. Also her exam is consistent with fibromyalgia. Had a long discussion with patient that fibromyalgia is a difficult disease to treat and there is no medication to treat this disease. Discussed that lifestyle changes is the most important thing for this disease. Failed gabapentin, pregabalin and flexeril Plan - Stop pregabalin and cyclobenzaprine - Start low dose naltrexone 4.5mg daily - RTC 6 months Plan I spent 25 minutes reviewing the record and labs, seeing the patient, discussing the treatment plan, and documenting in the medical record Medications: New naltrexone 1.5 mg PO DAILY 90 caps 1RF M79.7 - Fibromyalgia Changed From ibuprofen 800 mg PO TID PRN headache M79.7 - Fibromyalgia To ibuprofen 800 mg PO TID 30 days PRN 90 tabs 5RF pain M79.7 - Fibromyalgia Coding Level of Care Code Est Pt Level 3 (18183) Diagnoses Fibromyalgia M79.7
[2024-05-22 13:20] VITALS: BP 100/64; PULSE 54; O2SAT 95; BMI 35.4
--- OUTSIDE RECORDS SUMMARY | 2024-05-22 13:27 | XMS_ITS | Encounter Summary ---
Author Organization [facility] Address [address] [place] [address] Care Team Providers Care Nursing Faculty Name Role Phone Olivier Guardado LEX Primary Care Provider [phone] [phone] Encounter Details Date Type Department Care Team (Latest Contact Info) Description 04/24/2024 Travel Social History Tobacco Use Types Packs/Day Years Used Date Smoking Tobacco: Never Smokeless Tobacco: Never Alcohol Use Standard Drinks/Week Comments Yes 0 (1 standard drink = 0.6 oz pur e alcohol) occasional Social Connections Answer Date Recorded Connectedness 1 05/04/2023 Financial Resource Strain Answer Date R ecorded Financial Resource Strain 2 2023 Stress Answer Date Recorded Stress 2 05/04/2023 Physical Activity Answer Date Recorded Physical Activity 2 05/04/2023 Food Insecurity Answer Date Recorded Food 1 05/04/2023 Transportation Needs Answer Date Record ed Transportation 2 05/04/2023 Housing Stability Answer Date Recorded Housing 2 05/04/2023 Safety and Environment Answer Date Gerard rded Safety 1 05/04/2023 Utilities Answer Date Recorded Utilities 2 05/04/2023 Employment Answer Date Recorded Stress 1 05/04/2023 Comments No Sex and Gender Information Value Date Recorded Sex Assigned at Female 04/24/2017 8:29 AM PST Legal Sex Female 7:20 PM PDT Gender Identity Female 04/24/2017 8:29 AM PST Sexual Orientation Straight 04/24/2017 8: 29 AM PST COVID-19 Exposure Response Date Recorded In the last 10 days, have yo u been in contact with someone who was confirmed or suspected to have Coronavirus/COVID-19? Unable to assess 04/24/2024 9:39 AM EST documented as of this encounter Plan of Treatment Upcoming Encounters Date Type Department Care Team (Late Contact Info) Description 06/05/2024 9:45 AM EST BH/MH Visits [facility] [address] [place] [phone] Katia Carreno FNP [address] [place] [phone] 06/10/2024 9:00 AM EDT BH/MH Visits [facility] [address] [place] [phone] Junior Hazel, [employer] [address] [place], [place] [phone] 07/23/2024 11:20 AM EDT Office Visit [facility] [address] [place] [phone] Olivier Guardado FNP [address] [place] [phone] documented as of this encounter Visit Diagnoses Not on filedocumented in this encounter Additional Health Concerns Assessment Noted Time PHQ-9 Depression Total Score: 24 024 10:51 AM PDT documented as of this encounter Care Teams Nursing Faculty Relationship Specialty Start Date End Date Olivier Guardado FNP [address] [place] [phone] PCP - General Family Medicine, DEVELOPMENTAL THERAPIST 09/16/20 documented as of this encounter
--- OUTSIDE RECORDS SUMMARY | 2024-05-22 13:27 | XMS_ITS | Clinical Summary ---
Author Organization [facility] Address [address] [place] [address] Care Team Providers Care Deputy Coroner Investigator Name Role Phone Olivier Guardado LEX Primary Care Provider [phone] [phone] Source Comments PLEASE NOTE, if this patient is a minor, it may be UNLAWFUL to discuss sensitive information that is contained in these records (such as FAMILY PLANNING, MENTAL HEALTH or SUBSTANCE ABUSE) with the minor patient's parent or other person without the patient's specific authorization.[facility] Allergies Active Allergy Reactions Criticality Noted Date Comments Penicillin Rash 08/07/2015 Penicillin V Potassium 01/24/2011 PENICILLIN V POTASSIUM rash-- Penicillins Rash Medications blood sugar diagnostic (ONETOUCH ULTRA TEST) stripsIndication s:Prediabetes 1 Strip as needed for high blood sugar. Test twice a day 100 Each 6 Active blood-glucose meter kit (ONETOUCH ULTRA SYSTEM KIT) monitoring kitIndications:P rediabetes as needed for blood glucose monitoring. 1 Each 0 6 Active lancets (ONETOUCH ULTRASOFT LANCETS)Indicati ons:Prediabetes Test twice a day 100 Each 1 6 Active FREESTYLE LANCETS 28 gauge Test 2 times daily. 1 6 Active PROCHAMBERIndica tions:Cough USE DIRECTED 1 Each 2 Active methIMAzole (TAPAZOLE) 5 mg tabletIndication s:Hyperthyroidis m Take 1 Tablet by mouth 2 (two) times daily 60 Tablet 3 3 Active levETIRAcetam (KEPPRA) 500 mg tablet Take 500 mg by mouth 2 (two) times daily 3 Active atorvastatin (LIPITOR) 40 mg tablet TAKE 1 TABLET BY MOUTH EVERY DAY 90 Tablet 1 4 Active esomeprazole (NEXIUM) [address] capsule TAKE 1 CAPSULE BY MOUTH EVERY MORNING BEFORE BREAKFAST 90 Capsule 1 4 Active propranolol LA (INDERAL LA) 60 mg 24 hr capsuleIndicatio ns:Elevated BP without diagnosis of hypertension Take 1 Capsule by mouth once daily 90 Capsule 2 4 Active acetaminophen (TYLENOL) 500 mg tabletIndication s:Chronic pain of multiple joints Take 2 Tablets by mouth every 6 (six) hours as needed for pain 180 Tablet 4 Active gabapentin (NEURONTIN) 800 mg tablet Take 1 Tablet by mouth 3 (three) times daily 270 Tablet 2 4 Active famotidine (PEPCID) 40 mg tabletIndication s:Gastroesophage al reflux disease, unspecified whether esophagitis present Take 1 Tablet by mouth once daily 90 Tablet 1 4 Active ibuprofen 800 mg tabletIndication s:Chronic pain of multiple joints TAKE 1 TABLET BY MOUTH THREE TIMES DAILY NEEDED FOR HEADACHE OR PAIN 30 Tablet 2 4 Active DULoxetine (CYMBALTA) [address] capsule TAKE 2 CAPSULES BY MOUTH EVERY DAY. STOP 30MG 180 Capsule 2 4 Active pregabalin (LYRICA) 50 mg capsule Take 50 mg by mouth nightly at bedtime 4 Active OLANZapine (ZYPREXA) 5 mg tabletIndication s:Moderate episode of recurrent major depressive disorder (HCC-CMS),Situat ional psychosis, brief (HCC-CMS) Take 1 Tablet by mouth nightly at bedtime for 90 days 30 Tablet 2 5 07/24/19 25 Active doxylamine succinate (UNISOM) 25 mg tabletIndication s:Other insomnia Take 1 Tablet by mouth nightly at bedtime as needed for sleep for up to 90 days 90 Tablet 5 07/24/19 25 Active OLANZapine (ZYPREXA) 5 mg tabletIndication s:Moderate episode of recurrent major depressive disorder (HCC-CMS),Situat ional psychosis, brief (HCC-CMS) Take 1 Tablet by mouth nightly at bedtime for 90 days 30 Tablet 2 4 04/24/19 25 Discontin ued(Reord er (E-Cancel Not Sent)) doxylamine succinate (UNISOM) 25 mg tabletIndication s:Other insomnia Take 1 Tablet by mouth nightly at bedtime as needed for sleep for up to 90 days 90 Tablet 4 04/24/19 25 Discontin ued(Reord er (E-Cancel Not Sent)) Active Problems Problem Noted Date Diagnosed Date Fibromyalgia 10/03/2023 Nonintractable generalized i diopathic epilepsy without status epilepticus ([facility]) 03/28/2023 Overview (03/28/2023): Mar 2023- following with [place] neuro, was started on treatment for six months Moderate episode of recurren t major depressive disorder ([facility]) 02/14/2023 Hyperthyroidism 09/13/2022 Multiple thyroid nodules 10/06/2020 Overview (10/06/2020): [facility] 03 September 2020, endo referral pending Colon cancer screening 12/06/2016 Overview (12/06/2016): [facility] 11/29/16 Internal hemorrhoids Minimal gastric erythema suggestive of gastritis, biopsied Kidney cysts 10/07/2016 Overview (01/05/2017): [facility] 11/02/16 Renal cyst Nonnephrologic back, spine hip and leg pains Pain out of proportion to exam may suggest secondary gain Normal GFR Enlarged liver 10/07/2016 Pap smear for cervical cancer screening 01/19/20 16 Overview (01/21/2016): Cytopathology report 01/15/16. Negative chlanydia and N.gonorrhoeae 01/19/16: Thin prep Negative for squamous intraepithelial lesion and malignancy Negative hpv Repeat in 3 years Mixed hyperlipidemia 10/16/2015 Prediabetes 08/19/2015 PTSD (post-traumatic stress disorder) 03/10/2015 Epigastric pain 03/10/2015 Adjustment disorder with mixed anxiety and depre ssed mood 03/10/2015 Obesity 03/17/2014 Radiculopathy of lumbar region 03/17/2014 Acute gastritis without bleeding 03/17/2014 Encounter for general adult medical examination without abnormal findings 03/17/2014 Cough 03/17/2014 Encounters Date Type Department Care Team Description 05/21/2024 9:00 AM EST / Visits [address] [phone] Junior Hazel LCSW Moderate episode of recurrent major depressive disorder (HCC-CMS) (Primary Dx); Situational psychosis, brief (HCC-CMS) 04/24/2024 9:45 AM EST / Visits [address] [phone] Katia Carreno, FLASH OVEN OPERATOR Moderate episode of recurrent major depressive disorder (HCC-CMS) (Primary Dx); SCARLET (generalized anxiety disorder); Situational psychosis, brief (HCC-CMS); Other insomnia 04/24/2024 Travel 04/18/2024 Travel 02/23/2024 9:00 AM EST / Visits [address] [phone] Katia Carreno, FLASH OVEN OPERATOR Moderate episode of recurrent major depressive disorder (HCC-CMS) (Primary Dx); SCARLET (generalized anxiety disorder); Situational psychosis, brief (HCC-CMS); Other insomnia 02/23/2024 Travel 02/21/2024 3:15 PM EST / Visits [address] [phone] Junior Hazel LCSW Moderate episode of recurrent major depressive disorder (HCC-CMS) (Primary Dx); Situational psychosis, brief (HCC-CMS) 02/21/2024 Travel from Last 3 Months Immunizations Name Administration Dates Next Due Flu, Preservative Free 01/05/2017,06/06/2016 INFLUENZA, UNSPECIFIED 02/02/2015,12/23/2013, PFIZER COVID VACCINE, PURPLE CAP, 12+ 07/28/2020 TDAP 10/16/2015 ZOSTER VACCINE, RECOMBINANT (SHINGRIX) Family History Medical History Relation Name Comments Heart attack Brother age 65 Colon Cancer Father 87 Diabetes Father 87 Diabetes Mother 67 Hypertension Mother 67 Stroke Mother 67 Diabetes Sister 1 Hypertension Sister 1 Hypertension Sister 2 Relation Name Status Comments Brother Father 87 Mother 67 Alive Sister 1 Sister 2 Social History Tobacco Use Types Packs/Day Years Used Date Smoking Tobacco: Never Smokeless Tobacco: Never Tobacco Cessation:Counseling Given: Not Answered Alcohol Use Standard Drinks/Week Comments Yes 0 [...] Unable to assess 04/24/2024 9:39 AM EST Last Filed Vital Signs Vital Sign Reading Time Taken Comments Blood Pressure 117/80 10/03/2023 4:03 PM EDT Pulse 77 10/03/2023 4:03 PM EDT Temperature 36.9 ??C (98.4 ??F) 10/03/2023 4:03 PM ED T Respiratory Rate 18 10/03/2023 4:03 PM EDT Oxygen Saturation 98% 08/23/2023 8:57 AM EDT Inhaled Oxygen Concentration - - Weight 83.5 kg (184 lb) 12/11/2023 10:55 AM EDT Height 157.5 cm (5' 2 ) 12/11/2023 10:55 AM EDT Body Mass Index 33.65 12/11/2023 10:55 AM EDT Plan of Treatment Upcoming Encounters Date Type Department Care Team (Late st Contact Info) Description 06/05/2024 9:45 AM EST BH/MH Visits [facility] [address] [place] [phone] Katia Carreno, FLASH OVEN OPERATOR [address] [place] [phone] 06/10/2024 9:00 AM EDT BH/ Visits [facility] [address] [place] [phone] Junior Hazel, THERAPIST PHYSICAL [address] [place], [place] [phone] 07/23/2024 11:20 AM EDT Office Visit [facility] [address] [place] [phone] Olivier Guardado, [facility] [address] [place], [place] [phone] Health Maintenance Due Date Last Done Comments Imm-Hepatitis B (1 of 3 - 19 + 3-dose series) 1992 CT Colonography 2018 FIT/gFOBT 2018 Fecal DNA 2018 Flexible Sigmoidoscopy 2018 Imm-Zoster, Recombinant (2 of 2) 11/28/2023 10/03/19 24 Colonoscopy 11/30/2023 11/29/2016 Colorectal Cancer Screening 11/30/2023 [id number] ( season) 2023 021 Imm-Influenza (#1) 2023 01/05/2017, 0 06/06/2016, 02/02/2015, Additional history exists Depression Monitoring 03/11/2024 12/11/2023 , 10/03/2023, 12/22/2022, Additional history exists Alcohol and Drug Screen 04/03/2024 12/11/19 24, 10/03/2023, 06/07/2022, Additional history exists Dental BW 05/03/2024 05/01/2023 Dental Examination 05/03/2024 05/01/2023 Dental Perio Charting 05/07/2024 05/05/2023 Dental Prophy 05/07/2024 05/05/2023 Annual Preventive Care Visit 10/02/202405/2023, 06/07/2022, 07/28/2020, Additional history exists Diabetes Screening 10/16/2024 10/17/2023, 0 10/17/2023, 11/19/2022, Additional history exists Lipid Screening 10/16/2024 10/17/2023, 09/02, 06/13/2022, Additional history exists Breast Cancer Screening (Mammogram) 12/28/2024 12/28/2022 Tobacco Screening 04/24/2025 04/24/2024 Imm-DTaP/Tdap/Td (2 - Td or Tdap) 10/15/2025 016 Dental FMX/Pano 05/03/2028 05/01/2023 HIV Screening Completed 01/05/2017 Hepatitis C Screening Completed 06/11/2020 Procedures Procedure Name Priority Date/Time Associated Diagnosis Comments COMPREHENSIVE METABOLIC PANEL Routine 10/17/2023 10:51 AM EDT Hyperthyroidism LIPID PANEL Routine 10/17/2023 10:51 AM EDT Hyperthyroidism PROPHYLAXIS - ADULT Routine 05/05/2023 3 :00 PM EST Encounter for dental examination INTRAORAL - COMP SERIES OF RADIOGRAPHIC IMAGES Routine 05/01/2023 3:40 PM EST Caries of enamel (incipient) Caries COMP ORAL EVALUATION - NEW/ESTABLISHED PATIENT Routine 05/01/2023 3:40 PM EST Caries of enamel (incipient) Caries REFERRAL FOR MAMMOGRAM Routine 3:00 AM EDT Examination, medical, general HEPATITIS C ANTIBODY Routine 06/11/2020 9:05 AM EST Need for hepatitis C screening test ANTIBODY HIV-1&HIV-2 SINGLE RESULT Routine 01/05/2017 11:35 AM EDT Routine adult health maintenance from Last 3 Months or Most Recently Relevant to Health Maintenance Results * (ABNORMAL) LIPID PANEL (10/17/2023 10:51 AM EDT) CHOLESTEROL, TOTAL 269(H) <200 mg/dL [email or web address] HDL CHOLESTEROL 45(L) > OR = 50 mg/dL [facility] TRIGLYCERIDES 177(H) <150 mg/dL [facility] LDL-CHOLESTEROL 189(H) 99 mg/dL (calc) [facility] Comment: Reference range: <100 Desirable range <100 mg/dL for primary prevention; ?? <70 mg/dL for patients with CHD or diabetic patients with > or = 2 CHD risk factors. LDL-C is now calculated using the Leighann calculation, which is a validated novel method providing better accuracy than the Friedewald equation in the estimation of LDL-C. Kendall SS et al. ISAAC. 2013;310(19): 6096-2859 (http://education.MemSQL/faq/UMI366) CHOL/HDLC RATIO 6.0(H) <5.0 (calc) [facility] NON-HDL CHOLESTEROL 224(H) <130 mg/dL (calc) [facility] Comment: Non-HDL level > or = 220 is very high and may indicate genetic familial hypercholesterolemia (FH). Clinical assessment and measurement of blood lipid levels should be considered for all first-degree relatives of patients with an FH diagnosis. For patients with diabetes plus 1 major ASCVD risk factor, treating to a non-HDL-C goal of <100 mg/dL (LDL-C of <70 mg/dL) is considered a therapeutic option. Blood Blood / Unknown 10/17/2023 1 0:51 AM EDT 10/17/2023 10:51 AM EDT Narrative [facility] - 10/18/2023 5:32 AM EDT FASTING:YES us Olivier HENRIQUEZP LAB - BLOOD DRAW Final Re sult [facility] [address] [address], [employer] [address] [address] * (ABNORMAL) COMPREHENSIVE METABOLIC PANEL (10/17/2023 10:51 AM EDT) GLUCOSE 113(H) 65 - 99 mg/dL [facility] Comment: ?Fasting reference interval For someone without known diabetes, a glucose value between 100 and 125 mg/dL is consistent with prediabetes and should be confirmed with a follow-up test. UREA NITROGEN (BUN) 13 7 - 25 mg/dL [facility] CREATININE (blood) 0.71 0.50 - 1.03 mg/dL [facility] EGFR 104 > OR = 60 mL/min/1. 73m2 [facility] BUN/CREATININE RATIO SEE NOTE: [facility] Comment: ?? Not Reported: BUN and Creatinine are within ?? reference range. ? SODIUM 139 135 - 146 mmol/L [facility] POTASSIUM 4.0 3.5 - 5.3 mmol/L [facility] CHLORIDE 103 98 - 110 mmol/L [facility] CARBON DIOXIDE 28 20 - 32 mmol/L [facility] CALCIUM 9.5 8.6 - 10.4 mg/dL [facility] PROTEIN, TOTAL 6.9 6.1 - 8.1 g/dL [facility] ALBUMIN 4.2 3.6 - 5.1 g/dL [facility] GLOBULIN 2.7 1.9 - 3.7 g/dL (calc) [facility] ALBUMIN/GLOBULI N RATIO 1.6 1.0 - 2.5 (calc) [facility] BILIRUBIN, TOTAL 0.5 0.2 - 1.2 mg/dL [facility] ALKALINE PHOSPHATASE 62 37 - 153 U/L [facility] AST 15 10 - 35 U/L [facility] ALT 15 6 - 29 U/L [facility] Blood Blood / Unknown 10/17/2023 1 0:51 AM EDT 10/17/2023 10:51 AM EDT Narrative [facility] - 10/18/2023 5:32 AM EDT FASTING:YES Olivier Guardado FLASH OVEN OPERATOR LAB - BLOOD DRAW Edited R esult - Final [facility] [address] [address], [facility] [address] [phone] * REFERRAL FOR MAMMOGRAM (12/28/2022 3:00 AM EDT) 12/28/2022 3:00 AM EDT Olivier Guardado FLASH OVEN OPERATOR IMG RFL MAMMO Edited Re sult - Final * HEPATITIS C ANTIBODY (06/11/2020 9:05 AM EST) HEPATITIS C VIRUS SCREEN NEGATIVE NEGATIVE [facility] Blood Blood / Unknown 06/11/2020 9 :05 AM EST 06/11/2020 9:19 AM EST Narrative [facility] - 06/11/2020 12:53 PM EST Consult [employer] [place] [address] Consumer Analyst - Angela Paul MD PT ID [id number] ORD# [id number] Roma Osborn PA-C LAB - [place] [address], * HIV-1 & HIV-2 ANTIBODIES (01/05/2017 11:35 AM EDT) HIV 1 AND 2 ANTIBODY SCREEN NEGATIVE NEGATIVE [facility] Comment: This assay is a 4th generation assay allowing for earlier detection of HIV infection by detecting the presence of the HIV-1 p24 antigen as well as the traditional antibodies to HIV type 1 (including group O) and type 2. ??Use of a 4th generation assay is the current CDC recommendation for HIV screening. Blood specimen (specimen) Blood / Unknown 01/05/2017 11:35 AM EDT 01/05/2017 1:36 PM EDT Narrative [facility] - 01/05/2017 7:24 PM EDT [facility] [address] [place] [address] PT ID [id number] ORD# [id number] Litzy BURNETT LAB - BLOOD DRAW Final Resul t [facility] [address] [place] [address], [place] [phone] from Last 3 Months or Most Recently Relevant to Health Maintenance Insurance [facility] [employer] [place] MEDICAID DENTAL [address] ACO Care Teams Deputy Coroner Investigator Relationship Specialty Start Date End Date Olivier Guardado FNP [address] [place] [address] PCP - General Family Medicine, CLIENT SERVICES REPRESENTATIVE 09/16/20
--- OUTSIDE RECORDS SUMMARY | 2024-05-22 13:27 | XMS_ITS | Encounter Summary ---
Author Organization [facility] Address [address] [place] [address] Care Team Providers Care Wax Coating Machine Tender Name Role Phone Olivier Guardado LEX Primary Care Provider [phone] Encounter Details Date Type Department Care Team ([facility] st Contact Info) Description 05/21/2024 9:00 AM EST / Visits [facility] [address] [place] [phone] Junior Hazel LCSW [address] [place], [place] [phone] Moderate episode of recurrent major depressive disorder (HCC-CMS) (Primary Dx); Situational psychosis, brief (HCC-CMS) Social History Tobacco Use Types Packs/Day Years [...] Description 06/05/2024 9:45 AM EST BH/MH Visits [address] [phone] Katia Carreno [address] [phone] 06/10/2024 9:00 AM EDT BH/ Visits [address] [phone] Junior Hazel LCSW [address] [place] [address] 07/23/2024 11:20 AM EDT Office Visit [address] [phone] Olivier Guardado [address] [address] documented as of this encounter Visit Diagnoses Diagnosis Moderate episode of recurrent major depressive disorder (HCC-CMS)- Primary Situational psychosis, brief (HCC-CMS) Other and unspecified reactive psychosis documented in this encounter Additional Health Concerns Assessment Noted Time PHQ-9 Depression Total Score: 24 024 10:51 AM PDT documented as of this encounter Care Teams Wax Coating Machine Tender Relationship Specialty Start Date End Date Olivier Guardado FNP [address] [place] [phone] PCP - General Family Medicine, MANAGER TREASURY 09/16/20 documented as of this encounter
--- OUTSIDE RECORDS SUMMARY | 2024-05-22 13:27 | XMS_ITS | Encounter Summary ---
Author Organization [facility] Address [address] [place] [address] Care Team Providers Care Director Of Philanthropy Name Role Phone DebbyOlivier [facility] Primary Care Provider [phone] Reason for Visit * Reason Comments Behavioral Health Problem Encounter Details Date Type Department Care Team ([facility] st Contact Info) Description 04/24/2024 9:45 AM EST / Visits [facility] [address] [place] [address] [phone] Katia Carreno FNP [address] [place] [address] [phone] Moderate episode of recurrent major depressive disorder (HCC-CMS) (Primary Dx); SCARLET (generalized anxiety disorder); Situational psychosis, brief (HCC-CMS); Other insomnia Social History Tobacco Use Types Packs/Day Years [...] AM EST documented as of this encounter Progress Notes * LEX Branch - 04/24/2024 1:54 PM EST Subjective Follow up The following visit was conducted via Audio only. I educated the patient/guardian on the terms of telehealth and the patient verbally consented to this telemedicine visit. The patient was identified using their Name, and [facility] ID. I identified myself as LEX BRANCH from [facility]. It was conducted in a private space to protect HIPPA sensitive information. Precautions were taken to provide confidentiality and security and patient was made aware of privacy considerations. The patients location was obtained and [facility] The patient/guardian was notified that the services were being provided from [facility] Location. The patient/guardian was notified how they can see a clinician in-person in the event of an emergency or if otherwise needed. Visit START TIME 9.45 END TIME 10.15 am Pesticide Use Medical Coordinator used during visit? No HPI Amy Shen is a 49 year old female who is being seen at the clinic for a follow- up appointment, has a history, and is being treated for depression, anxiety, and insomnia. Depression -The patient reported still experiencing a depressed mood in the form of low motivation,low energy, worthless feelings, isolation or interest in activities, sadness, loss of interest and social isolation/withdrawal . The patient also reports resolution of auditory hallucinations, and visual hallucinations . She reports that is unemployed and is facing financial hardships . The paint moved in with my daughter who is helping financially. Anxiety - The patient reported still experiencing moderate symptoms in the form of excessive worrying. She reports having a scheduled court divorce 05/28/24 that is triggering her symptoms. The patient continues with psychotherapy here at [facility]. Zyprexa was increased to 5 mg, and Unisom was given to help with sleep. Sleep - The patient reported improved sleep , sleeping about 8 hours a night. Stressors - As noted above Appetite - The patient reported a normal appetite The patient reports being compliant with medications. The Patient reports a good response to medications. The patient denies side effects and desires to remain on current medications. The Patient reports that the target symptoms of the diagnosis above have improved. Current Outpatient Medications Medication Sig Dispense Refill ??? doxylamine succinate (UNISOM) 25 mg tablet Take 1 Tablet by mouth nightly at bedtime as needed for sleep for up to 90 days 90 Tablet 0 ??? OLANZapine (ZYPREXA) 5 mg tablet Take 1 Tablet by mouth nightly at bedtime for 90 days 30 Tablet 2 ??? pregabalin (LYRICA) 50 mg capsule Take 50 mg by mouth nightly at bedtime ??? DULoxetine (CYMBALTA) [address] capsule TAKE 2 CAPSULES BY MOUTH EVERY DAY. STOP 30MG 180 Capsule 2 ??? ibuprofen 800 mg tablet TAKE 1 TABLET BY MOUTH THREE TIMES DAILY NEEDED FOR HEADACHE OR PAIN30 Tablet 2 ??? famotidine (PEPCID) 40 mg tablet Take 1 Tablet by mouth once daily 90 Tablet 1 ??? gabapentin (NEURONTIN) 800 mg tablet Take 1 Tablet by mouth 3 (three) times daily 270 Tablet 2 ??? acetaminophen (TYLENOL) 500 mg tablet Take 2 Tablets by mouth every 6 (six) hours as needed forpain 180 Tablet 0 ??? propranolol LA (INDERAL LA) 60 mg 24 hr capsule Take 1 Capsule by mouth once daily 90 Capsule 2 ??? atorvastatin (LIPITOR) 40 mg tablet TAKE 1 TABLET BY MOUTH EVERY DAY 90 Tablet 1 ??? esomeprazole (NEXIUM) [address] capsule TAKE 1 CAPSULE BY MOUTH EVERY MORNING BEFORE BREAKFAST 90 Capsule 1 ??? levETIRAcetam (KEPPRA) 500 mg tablet Take 500 mg by mouth 2 (two) times daily ??? methIMAzole (TAPAZOLE) 5 mg tablet Take 1 Tablet by mouth 2 (two) times daily 60 Tablet 3 ??? PROCHAMBER USE DIRECTED 1 Each 1 ??? FREESTYLE LANCETS 28 gauge Test 2 times daily. 1 ??? blood sugar diagnostic ([employer] Technology ULTRA TEST) strips 1 Strip as needed for high blood sugar. Test twice a day 100 Each 1 ??? blood-glucose meter kit (ONETOUCH ULTRA SYSTEM KIT) monitoring kit as needed for blood glucose monitoring. 1 Each 0 ??? lancets (ONETOUCH ULTRASOFT LANCETS) Test twice a day 100 Each 1 No current facility-administered medications for this visit. Safety Assessment (Suicide/Homicidal Risk) Feels like hurting self DENIES Violence Risk: No Active Intent, No Plan Feels like hurting others DENIES Suicidal Risk: No Active SI, No Plan Emotion/Mood Calm Coping (Observed Emotional State) Calm and Cooperative Speech Clear, coherent Orientation WNL and Oriented to all domains Thought Processes WNL Hallucinations Denies hallucinations Delusions No delusions Review of Systems - As noted above Objective Couldn't be done as this was done over the phone There were no vitals filed for this visit. Estimated body mass index is 33.65 kg/m?? as calculated from the following: Height as of 12/11/23: 5' 2 (1.575 m). Weight as of 12/11/23: 184 lb (83.5 kg). No height and weight on file for this encounter. Physical Exam Couldn't be done as this was done over the phone Assessment and Plan 1. Moderate episode of recurrent major depressive disorder (HCC-CMS) (Primary) - OLANZapine (ZYPREXA) 5 mg tablet; Take 1 Tablet by mouth nightly at bedtime for 90 days Dispense:30 Tablet; Refill: 2 2. SCARLET (generalized anxiety disorder) 3. Situational psychosis, brief (HCC-CMS)- Resolved - OLANZapine (ZYPREXA) 5 mg tablet; Take 1 Tablet by mouth nightly at bedtime for 90 days Dispense:30 Tablet; Refill: 2 4. Other insomnia - doxylamine succinate (UNISOM) 25 mg tablet; Take 1 Tablet by mouth nightly at bedtime as needed for sleep for up to 90 days Dispense: 90 Tablet; Refill: 0 Stable symptoms on the current regimen, The current medical regimen is effective; continue the present plan and medications. F/U in 8 weeks RTC as scheduled and prn or if symptoms worsen documented in this encounter Plan of Treatment Upcoming Encounters Date Type Department Care Team (Late st Contact Info) Description 06/05/2024 9:45 AM EST BH/MH Visits [address] [phone] Katia Carreno, [facility] [address] [place] [phone] 06/10/2024 9:00 AM EDT BH/MH Visits [address] [phone] Junior Hazel, BOTT[employer] [address] [place] [address] [phone] 07/23/2024 11:20 AM EDT Office Visit [address] [phone] Olivier Guardado FNP [address] [place] [phone] documented as of this encounter Visit Diagnoses Diagnosis Moderate episode of recurrent major depressive disorder (HCC-CMS)- Primary SCARLET (generalized anxiety disorder) Generalized anxiety disorder Situational psychosis, brief (HCC-CMS) Other and unspecified reactive psychosis Other insomnia documented in this encounter Additional Health Concerns Assessment Noted Time PHQ-9 Depression Total Score: 24 024 10:51 AM PDT documented as of this encounter Care Teams Director Of Philanthropy Relationship Specialty Start Date End Date Olivier Guardado FNP [address] [place] [phone] PCP - General Family Medicine, SHOE REPAIRMAN 09/16/20 documented as of this encounter
== END 2024-05-22 13:42 | disposition home or self-care (01) ==
PROVIDERS: PCP Registered Nurse; Visit Provider Student in an Organized Health Care Education/Training Program
DX: M79.7 Fibromyalgia (principal)
CPT/HCPCS: 99213

== ENCOUNTER → 2024-05-22 13:09 | Outpatient (BNVA) | payer MEDICAID, SELFPAY | PROVIDERS: PCP Registered Nurse; Visit Provider Student in an Organized Health Care Education/Training Program | DX: M79.7 Fibromyalgia (principal); E78.5 Hyperlipidemia, unspecified | CPT/HCPCS: 99212 ==

== ENCOUNTER 2024-11-20 13:45 | Outpatient (AMB) | payer MEDICAID, SELFPAY ==
--- NOTE | 2024-11-20 14:02 | A.OFFVIS_ITS ---
Vital Signs 11/20/24 14:03 Height 5 ft 2 in Weight 179 lb 14.355 oz BMI 32.9 BP 112/66 Blood Pressure Location Lt brachial Position Sitting Pulse 67 Pulse Source Pulse Oximeter Pulse Oximetry (%) 99 Oxygen Delivery Method Room Air Intake Visit Reasons: f/ u fibromyalgia Intake Note: Patient presents for follow up on fibromyaglia today, still in pain. Allergies Penicillins Allergy (Unknown, Verified 11/20/24 14:06) Rash Medication List - Last Reconciled 11/20/24 by Kisha Reyes MD acetaminophen 1,000 mg PO Q6H PRN albuterol sulfate 90 mcg/actuation (Ventolin HFA) 2 puffs inhalation Q6H PRN aspirin 81 mg PO DAILY atorvastatin 40 mg PO DAILY diclofenac sodium 1% (Arthritis Pain (diclofenac)) 4 grams topical QID 30 days esomeprazole magnesium 40 mg PO QAM famotidine 40 mg PO DAILY lidocaine 5% leave on most painful area for up to 12 hrs topically daily; 30 days naltrexone 4.5 mg PO DAILY olanzapine 5 mg PO DAILY propranolol ER 60 mg PO DAILY sertraline 100 mg PO DAILY HPI Comments Details: Patient is a 49-year-old female with hyperlipidemia, depression and fibromyalgia who returns today for follow up Interval History: Patient seen 05/22/24 with me - On pregablin and cylcobenzaprine - Still complaining of whole body pain - Did not find these medications helpful - Pregabalin and cyclobenzaprine stopped - Low dose naltrexone 4.5mg started Today - On naltrexone 4.5mg - Got improvement on the naltrexone for a few months but not as helpful now - Hoping that the dose can be increased Rheumatologic History: Patient presented for evaluation 12/29/23. At that time she reported a longstanding history of intermittent body and joint pains since age of 13. 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 She denies Raynaud's, rash, photosensitivity, eye pain or inflammation, oral or nasal ulcers, skin tightening, alopecia. She has 3 children 1 daughter 2 sons, she denies any history of recurrent 2nd trimester losses or preeclampsia. She denies any history of VTE No family history of any autoimmune disease such as rheumatoid arthritis or lupus. But she does have a sister that also has fibromyalgia. Gabapentin 1200 mg t.i.d.. Not effective Lyrica not effective Flexeril not effective Low dose naltrexone helpful Current Rheumatology Medication(s): Naltrexone 4.5mg daily PFSH Medical History (Updated 02/02/24 @ 13:43 by Jorge Rahman MD) Chronic pain syndrome Fibromyalgia Nonintractable generalized 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 status epilepticus Moderate episode of recurrent major depressive disorder Hyperthyroidism Multiple thyroid nodules Colon cancer screening Enlarged liver Kidney cysts Pap smear for cervical cancer screening Mixed hyperlipidemia Prediabetes Cough Acute gastritis without bleeding Radiculopathy of lumbar region Adjustment disorder with mixed anxiety and depressed mood Obesity Epigastric pain PTSD (post-traumatic stress disorder) Polyarthralgia Family History Father Cancer Mother Diabetes Fibromyalgia Alzheimer dementia Social History Household Members: Children Housing: Apartment Alcohol intake: current Comment: Occassionally Patient Tobacco Use Status: Never used Tobacco Review of Systems Const Details: Review of Systems Constitutional: Denies fever, chills, weight loss ENT: Denies vision changes, eye pain or eye redness, dental caries, dry mouth GI: Denies nausea, vomiting, diarrhea, abdominal pain, change in BM Pulm: Denies SOB, TAM, hemoptysis, wheezing Cards: Denies chest pain, palpitations Skin: Denies Raynaud's, rash, nail changes, photosensitivity, TECHNICAL INSTRUCTOR: Denies headaches, weakness, paresthesias, recurrent falls MSK: as per HPI All other systems reviewed and are unremarkable except noted above Physical Exam Exam Exam: Vital signs reviewed Physical Examination CONSTITUITIONAL Patient alert and cooperative. Well appearing and in no apparent painful distress MSK Hands * Right Hand: Able to make a fist. No swelling or tenderness to palpation of these joints. * Left Hand: Able to make a fist. No swelling or tenderness to palpation of these joints. Wrists * Right Wrist: Full ROM. 70 degrees of wrist flexion, 80 degrees of wrist extension. No swelling or TTP * Left Wrist: Full ROM. 70 degrees of wrist flexion, 80 degrees of wrist extension. No swelling or TTP Elbows * Right Elbow: Full ROM. No swelling or TTP. No TTP of the medial and lateral epicondyles * Left Elbow: Full ROM. No swelling or TTP. No TTP of the medial and lateral epicondyles Shoulders * Right shoulder: Full ROM. No swelling noted. No TTP of the AC joint, subacromial bursa or posterior shoulder * Left shoulder: Full ROM. No swelling noted. No TTP of the AC joint, subacromial bursa or posterior shoulder Hip bursa: Tenderness to palpation bilaterally Knees * Right knee: Full ROM. No swelling noted. No TTP of the knee joint line * Left knee: Full ROM. No swelling noted. No TTP of the knee joint line * TTP pes anserine bursa bilaterally Ankles * Right ankle: Good ankle dorsiflexion and plantar flexion. No swelling. No TTP of the ankle joint * Left ankle: Good ankle dorsiflexion and plantar flexion. No swelling. No TTP of the ankle joint Feet * Right foot: Negative squeeze test * Left foot: Negative squeeze test Tender points? * Tenderness to palpation of the bilateral trapezius, supraspinatus, anterior costochondral junctions, bilateral suboccipital muscle insertions SKIN No rashes Vital Signs: Last Vital Signs Pulse 67 11/20/24 14:03 BP 112/66 11/20/24 14:03 Pulse Ox 99 11/20/24 14:03 Oxygen Delivery Method Room Air 11/20/24 14:03 BMI result Body Mass Index 32.9 Results Reviewed Results Reviewed: Laboratory Tests 12/29/23 12/29/23 09:26 09:29 WBC 5.4 RBC 4.11 L Hgb 11.5 L Hct 36.0 L Plt Count 231 ESR 23 H Sodium 142 Potassium 3.9 Chloride 106 Carbon Dioxide 30 H BUN 11 Creatinine 0.78 Calcium 9.5 Total Bilirubin 0.4 AST 14 ALT 12 Alkaline Phosphatase 71 C-Reactive Protein 0.23 Total Protein 7.4 Albumin 4.2 TSH 0.98 Urine Color Yellow Urine Appearance Clear Urine pH 6.5 Ur Specific [place] 1.025 Urine Protein Negative Urine Glucose (UA) Negative Urine Ketones Negative Urine Blood Negative Urine Nitrite Negative Protein/Creatinin Ratio 0.05 Rheumatoid Factor < 13.0 Cycl Citrul Peptide IgG <16 ANDIE Screen NEGATIVE XR Bilateral Feet 12/2023 FINDINGS (Left): No fracture, dislocation, or suspicious bone lesion. There is normal alignment. No subluxation. Normal plantar arch. There are mild osteoarthritis noted at the first MTP joint and interphalangeal joint of the hallux. Otherwise, the midfoot, hindfoot, forefoot appear normal. There is a small dorsal and small plantar calcaneal spur. No soft tissue abnormalities. IMPRESSION: 1. No acute findings left foot. 2. Mild osteoarthritis in the interphalangeal joint of the hallux, and first MTP joint. 2. Small dorsal and plantar calcaneal spurs. FINDINGS (Right): No fracture, dislocation, or suspicious bone lesion. There is normal alignment. No subluxation. Normal plantar arch. There are mild osteoarthritis noted at the first MTP joint and interphalangeal joint of the hallux. Mild spurring of the medial eminence of the first metatarsal head, in keeping with small bunion. Otherwise, the midfoot, hindfoot, forefoot appear normal. There is a tiny dorsal and tiny plantar calcaneal spur. No soft tissue abnormalities. IMPRESSION: 1. No acute findings right foot. 2. Mild osteoarthritis in the interphalangeal joint of the hallux, and first MTP joint. Small bunion. 2. Tiny dorsal and plantar calcaneal spurs. XR Bilateral Hand/Wrist 12/2023 FINDINGS (Right): No fracture, dislocation, or suspicious bone lesion. Normal alignment of the hand and wrist. Carpal bones intact, normally aligned. Joint spaces preserved. No periarticular osteopenia or evidence of erosions. Very mild osteoarthritis in the STT joints. Scaphoid view is normal. Normal soft tissues. FINDINGS (Left): No fracture, dislocation, or suspicious bone lesion. Normal alignment of the hand and wrist. Carpal bones intact, normally aligned. Joint spaces preserved. No periarticular osteopenia or evidence of erosions. Scaphoid views normal. Normal soft tissues. XR L Spine 02/2024 FINDINGS: Normal bone mineralization. No fracture, traumatic subluxation, or suspicious bony lesion. No compression deformity. There is a very minimal levoconvex scoliosis centered at L2-3. There is a normal lordosis. There is a minimal 2 mm degenerative retrolisthesis of L4 upon L5. Alignment is otherwise anatomic. Mild diffuse disc space degeneration present. Early degenerative facet changes L4-S1. Oblique views demonstrate no evidence of pars defects and normal facet alignment. Mild degenerative changes in both SI joints. No soft tissue abnormalities detected. IMPRESSION: 1. No acute lumbar spine findings. 2. Mild spondylosis as described. Assessment & Plan Assessment & Plan (1) Fibromyalgia: Code(s): M79.7 - Fibromyalgia Category: Medical Plan: #Fibromyalgia Patient is a 49-year-old female with fibromyalgia here today for follow up Discussed with the patient that increasing doses of naltrexone have not been studied and I would not recommend doing so for the treatment of fibromyalgia. She was very tearful during the encounter because she was hoping for other medications to help. I reiterated that there is no medication that will take away her pain completely I recommended that she find online support groups for patients with fibromyalgia and that she continue her current regimen. She mainly has muscle aches and spasms so I am recommending her to try cyclobenzaprine once again. She tried that in the past and stated it did not help but I think she was looking for the medication to completely take away her pain which I again reiterated we will not happen. I again discussed the diagnosis of fibromyalgia with her and that the treatment options for it are limited Plan - Low dose naltrexone 4.5mg daily - Cyclobenzaprine 10mg - RTC 6 months Plan I spent 35 minutes reviewing the record and labs, seeing the patient, discussing the treatment plan, counseling about fibromyalgia and documenting in the medical record Medications: New cyclobenzaprine 10 mg PO BEDTIME PRN 30 tabs 5RF muscle spasm M79.7 - Fibromyalgia Coding Level of Care Code Est Pt Level 4 (05170) Diagnoses Fibromyalgia M79.7
[2024-11-20 14:03] VITALS: BP 112/66; PULSE 67; O2SAT 99; BMI 32.9
--- OUTSIDE RECORDS SUMMARY | 2024-11-20 14:41 | XMS_ITS | Clinical Summary ---
Author Organization [facility] Address [address] [place] [address] Care Team Providers Care Naprapath Name Role Phone Olivier Guardado PROGRAM SUPPORT SPECIALIST Primary Care Provider [phone] Source Comments PLEASE NOTE, if this patient [...] a day 100 Each 1 6 Active blood-glucose meter kit (ONETOUCH ULTRA SYSTEM KIT) monitoring kitIndications:P rediabetes as needed for blood glucose monitoring. 1 Each 0 6 Active lancets (ONETOUCH ULTRASOFT LANCETS)Indicati ons:Prediabetes Test twice a day 100 Each 1 6 Active FREESTYLE LANCETS 28 gauge Test 2 times daily. 1 6 Active PROCHAMBERIndica tions:Cough USE DIRECTED 1 Each 1 2 Active methIMAzole (TAPAZOLE) 5 mg tabletIndication s:Hyperthyroidis m Take 1 Tablet by mouth 2 (two) times daily 60 Tablet 3 3 Active levETIRAcetam (KEPPRA) 500 mg tablet Take 500 mg by mouth 2 (two) times daily 3 Active acetaminophen (TYLENOL) 500 mg tabletIndication s:Chronic pain of multiple joints Take 2 Tablets by mouth every 6 (six) hours as needed for pain 180 Tablet 4 Active ibuprofen 800 mg tabletIndication s:Chronic pain of multiple joints TAKE 1 TABLET BY MOUTH THREE TIMES DAILY NEEDED FOR HEADACHE OR PAIN 30 Tablet 2 4 Active doxylamine succinate (UNISOM) 25 mg tabletIndication s:Other insomnia Take 1 Tablet by mouth nightly at bedtime as needed for sleep for up to 90 days 90 Tablet 5 Active naltrexone 4.5 mg cap Take 4.5 mg by mouth daily 30 Capsule 5 5 Active famotidine (PEPCID) 40 mg tabletIndication s:Gastroesophage al reflux disease, unspecified whether esophagitis present Take 1 Tablet by mouth once daily 90 Tablet 1 5 Active VIVELLE-DOT 0.0375 mg/24 hr patchIndications :Postmenopausal Place 1 Patch onto the skin 2 times a week 24 Patch 2 5 Active atorvastatin (LIPITOR) 40 mg tablet Take 1 Tablet by mouth once daily 90 Tablet 1 5 Active dulaglutide (TRULICITY) 0.75 mg/0.5 mL pen injectorIndicati ons:Prediabetes Inject 0.75 mg into the skin once a week 2 mL 3 5 Active DULoxetine (CYMBALTA) [address] capsuleIndicatio ns:Moderate episode of recurrent major depressive disorder (CMS & HHS-HCC),SCARLET (generalized anxiety disorder) Take 1 Capsule by mouth 2 (two) times daily. 180 Capsule 2 5 Active OLANZapine (ZYPREXA) 5 mg tabletIndication s:Moderate episode of recurrent major depressive disorder (CMS & HHS-HCC) Take 1 Tablet by mouth nightly at bedtime for 90 days. 30 Tablet 2 5 02/05/20 25 Active mirtazapine (REMERON) 15 mg tabletIndication s:Moderate episode of recurrent major depressive disorder (CMS & HHS-HCC) Take 1 Tablet by mouth nightly at bedtime for 90 days. 30 Tablet 2 5 02/05/20 25 Active DULoxetine (CYMBALTA) [address] capsule TAKE 2 CAPSULES BY MOUTH EVERY DAY. STOP 30MG 180 Capsule 2 4 11/07/19 25 Discontinu ed(Reorder (E-Cancel Not Sent)) OLANZapine (ZYPREXA) 5 mg tabletIndication s:Moderate episode of recurrent major depressive disorder (CMS & HHS-HCC),Situati onal psychosis, brief (CMS & HHS-HCC) Take 1 Tablet by mouth nightly at bedtime for 90 days 30 Tablet 2 5 11/07/19 25 Discontinu ed(Reorder (E-Cancel Not Sent)) mirtazapine (REMERON) 15 mg tabletIndication s:Moderate episode of recurrent major depressive disorder (CMS & HHS-HCC) Take 1 Tablet by mouth nightly at bedtime for 90 days 30 Tablet 2 5 11/07/19 25 Discontinu ed(Reorder (E-Cancel Not Sent)) Active Problems Problem Noted Date Diagnosed Date Fibromyalgia 10/03/2023 Nonintractable generalized i diopathic epilepsy without status epilepticus (CMS & HHS-HCC) 03/28/2023 Overview (03/28/2023): Mar 2023- following with Lakesha cunningham, was started on treatment for six months Moderate episode of recurren t major depressive disorder (CMS & HHS-HCC) 02/14/2023 Hyperthyroidism 09/13/2022 Multiple thyroid nodules 10/06/2020 Overview (10/06/2020): [facility] 03 September 2020, endo referral pending Colon cancer screening 12/06/2016 Overview (12/06/2016): [facility] 11/29/16 Internal hemorrhoids Minimal gastric erythema suggestive [...] Encounters Date Type Department Care Team Description 11/20/2024 9:30 AM EDT BH/MH Visits [facility] [address] [place] [phone] Junior Hazel LCSW 11/06/2024 11:40 AM EDT BH/MH Visits [address] [phone] Katia Carreno FNP 10/31/2024 BH/MH TELEPHONE [facility] [address] [phone] Anshul Dillon Community Health Worker 10/30/2024 9:30 AM EDT BH/MH Visits [facility] [address] [place] [phone] Junior Hazel LCSW 10/11/2024 9:00 AM EDT BH/MH Visits [facility] [address] [place] [address] Junior Hazel LCSW 09/12/2024 11:15 AM EDT BH/MH Visits [facility] [address] [place] [phone] Junior Hazel LCSW from Last 3 Months Immunizations Immunization Administration Dates Next Due Flu, Preservative Free [...] Never Smokeless Tobacco: Never Tobacco Cessation:Counseling Given: Yes Alcohol Use Standard Drinks/Week Comments Yes 0 [...] Orientation Straight 04/24/2017 8: 29 AM PST Last Filed Vital Signs Vital Sign Reading Time Taken Comments Blood Pressure 124/74 07/25/2024 8:55 AM EDT Pulse 94 07/25/2024 8:55 AM EDT Temperature 36.9 C (98.5 F) 07/25/2024 8:55 AM EDT Respiratory Rate 16 07/25/2024 8:55 AM EDT Oxygen Saturation 98% 08/23/2023 8:57 AM EDT Inhaled Oxygen Concentration - - Weight 85.9 kg (189 lb 6.4 oz) 07/25/2024 8:55 A M EDT Height 157.5 cm (5' 2 ) 07/25/2024 8:55 AM EDT Body Mass Index 34.64 07/25/2024 8:55 AM EDT Plan of Treatment Upcoming Encounters Date Type Department Care Team (Late st Contact Info) Description 11/27/2024 9:30 AM EDT BH/ Visits [facility] [address] [place] [phone] Junior Hazel LCSW [address] [place], [place] [phone] 12/06/2024 11:40 AM EDT BH/MH Visits [facility] [address] [place] [phone] Katia Carreno, PROGRAM SUPPORT SPECIALIST [address] [place] [phone] Health Maintenance Due Date Last Done Comments Imm-Hepatitis B (1 of 3 - 19 + 3-dose series) 1992 CT Colonography 2018 FIT/gFOBT 2018 Fecal DNA 2018 Flexible Sigmoidoscopy 2018 Imm-Pneumococcal 50+ (1 of 1 - PCV) 2023 Imm-Zoster, Recombinant (2 of 2) 11/28/2023 10/03/19 24 Colonoscopy 11/30/2023 11/29/2016 Colorectal Cancer Screening 11/30/2023 Xaf-FOBXP-54 (2 - season) 2023 021 Dental BW 05/03/2024 05/01/2023 Dental Examination 05/03/2024 05/01/2023 Dental Perio Charting 05/07/2024 05/05/2023 Dental Prophy 05/07/2024 05/05/2023 Annual Wellness (Adult): Ind icated (All Coverage) 10/02/2024 10/03/2023, 06/07/2022, 07/28/2020, Additional history exists Depression Monitoring 10/24/2024 07/25/2024 , 12/11/2023, 10/03/2023, Additional history exists Imm-Influenza (#1) 2024 01/05/2017, 0 06/06/2016, 02/02/2015, Additional history exists Anxiety Screening 12/10/2024 12/11/2023 Breast Cancer Screening (Mammogram) 12/28/2024 12/28/2022 Diabetes Screening 07/25/2025 07/25/2024, 0 10/17/2023, 10/17/2023, Additional history exists Hypertension Screening (#1) 07/25/2025 Lipid Screening 07/25/2025 07/25/2024, 10/01, 09/29/2022, Additional history exists Tobacco Screening 07/25/2025 07/25/2024 Imm-DTaP/Tdap/Td (2 - Td or Tdap) 10/15/2025 016 Dental FMX/Pano 05/03/2028 05/01/2023 HIV Screening Completed 01/05/2017 Hepatitis C Screening Completed 06/11/2020 Alcohol and Drug Screen Completed 07/26/19, 12/11/2023, 10/03/2023, Additional history exists Procedures Procedure Name Priority Date/Time Associated Diagnosis Comments CREELER REPORT 5 3:00 AM EDT CREELER REPORT 5 3:00 AM EDT CREELER REPORT 5 3:00 AM EDT HEMOGLOBIN GLYCOSYLATED A1C Routine 07/25/2024 9:29 AM EDT Prediabetes Hyperthyroidism LIPID PANEL Routine 07/25/2024 9:29 AM EDT Prediabetes Hyperthyroidism PROPHYLAXIS - ADULT Routine 05/05/2023 3 :00 PM EST Encounter for dental examination INTRAORAL - COMP SERIES OF RADIOGRAPHIC IMAGES Routine 05/01/2023 3:40 PM EST Caries of enamel (incipient) Caries COMP ORAL EVALUATION - NEW/ESTABLISHED PATIENT Routine 05/01/2023 3:40 PM EST Caries of enamel (incipient) Caries REFERRAL FOR MAMMOGRAM Routine 3 3:00 AM EDT Examination, medical, general HEPATITIS C ANTIBODY Routine 06/11/2020 9:05 AM EST Need for hepatitis C screening test ANTIBODY HIV-1&HIV-2 SINGLE RESULT Routine 01/05/2017 11:35 AM EDT Routine adult health maintenance from Last 3 Months or Most Recently Relevant to Health Maintenance Results * CREELER REPORT (10/07/2024 3:00 AM EDT) 10/07/2024 3:00 AM EDT Olivier Debby PROGRAM SUPPORT SPECIALIST SCAN PROCEDURES Final Res ult * CREELER REPORT (10/07/2024 3:00 AM EDT) 10/07/2024 3:00 AM EDT Olivier Debby PROGRAM SUPPORT SPECIALIST SCAN PROCEDURES Final Res ult * CREELER REPORT (10/07/2024 3:00 AM EDT) 10/07/2024 3:00 AM EDT [facility] Debby PROGRAM SUPPORT SPECIALIST SCAN PROCEDURES Final Res ult * (ABNORMAL) HEMOGLOBIN GLYCOSYLATED A1C (07/25/2024 9:29 AM EDT) HEMOGLOBIN A1C 6.4(H) <5.7 % [facility] Comment: For someone without known diabetes, a hemoglobin A1c value between 5.7% and 6.4% is consistent with prediabetes and should be confirmed with a follow-up test. For someone with known diabetes, a value <7% indicates that their diabetes is well controlled. A1c targets should be individualized based on duration of diabetes, age, comorbid conditions, and other considerations. This assay result is consistent with an increased risk of diabetes. Currently, no consensus exists regarding use of hemoglobin A1c for diagnosis of diabetes for children. Blood Blood / Unknown 07/25/2024 9 :29 AM EDT 07/25/2024 9:30 AM EDT Narrative [facility] - 07/26/2024 5:15 AM EDT FASTING:YES DTTncourt PROGRAM SUPPORT SPECIALIST LAB - BLOOD DRAW Edited R esult - Final [facility] [address] [address], [facility] [address] [place] [phone] * (ABNORMAL) LIPID PANEL (07/25/2024 9:29 AM EDT) [facility] Signature CHOLESTEROL, TOTAL 274(H) <200 mg/dL [facility] HDL CHOLESTEROL 46(L) > OR = 50 mg/dL [facility] TRIGLYCERIDES 191(H) <150 mg/dL [facility] LDL-CHOLESTEROL 191(H) 99 mg/dL (calc) [facility] Comment: LDL-C levels > or = 190 mg/dL may indicate familial hypercholesterolemia (FH). Clinical assessment and measurement of blood lipid levels should be considered for all first degree relatives of patients with an FH diagnosis. LDL Cholesterol (LDL-C) levels > or = 300 mg/dL may indicate homozygous familial hypercholesterolemia (HoFH). Untreated, these extremely high LDL-C levels can result in premature CV events and mortality. Patients should be identified early and provided appropriate interventions to reduce the cumulative LDL-C burden from . For questions about testing for familial hypercholesterolemia, please call [facility] Client Services at [email or web address]. Jyoti T, et al. J National Lipid Association Recommendations for Patient-Centered Management of Dyslipidemia: Part 1 Journal of Clinical Lipidology 2015;9(2), 129-169. Lucas Short. et al. (2014). Homozygous familial hypercholesterolaemia: new insights and guidance for clinicians to improve detection and clinical management. Heart Journal, 35(32), 3888-9965. Reference range: <100 Desirable range <100 mg/dL for primary prevention; <70 mg/dL for patients with CHD or diabetic patients with > or = 2 CHD risk factors. LDL-C is now calculated using the Leighann calculation, which is a validated novel method providing better accuracy than the Friedewald equation in the estimation of LDL-C. Kendall CASTANO et al. ISAAC. 2013;310(19): 9362-2678 (http://education.Tres Amigas/faq/RFX783) CHOL/HDLC RATIO 6.0(H) <5.0 (calc) [facility] NON-HDL CHOLESTEROL 228(H) <130 mg/dL (calc) [facility] Comment: Non-HDL level > or = 220 [...] a therapeutic option. Blood Blood / Unknown 07/25/2024 9 :29 AM EDT 07/25/2024 9:30 AM EDT Narrative [facility] - 07/26/2024 5:15 AM EDT FASTING:YES Olivier BURNETT LAB - BLOOD DRAW Final Re sult [facility] [address] [place] [id number], [facility] [address] [place] [phone] * REFERRAL FOR MAMMOGRAM SCREENING (12/28/2022 3:00 AM EDT) 12/28/2022 3:00 AM EDT Olivier HENRIQUEZP IMG RFL MAMMO Edited Re sult - Final * HEPATITIS C ANTIBODY (06/11/2020 9:05 AM EST) HEPATITIS C VIRUS SCREEN NEGATIVE NEGATIVE [facility] Blood Blood / Unknown 06/11/2020 9 :05 AM EST 06/11/2020 9:19 AM EST [facility]ative [facility] - 06/11/2020 12:53 PM EST [employer], [place] [address] Assistant Professor Of Chemistry - Angela Paul MD PT ID [id number] ORD# [id number] Roma Osborn PA-C LAB - BLOOD DRAW Final Resul t Performing Organization Address City/[facility]/ZIP Co de Phone Number [address] [address], * HIV-1 & HIV-2 ANTIBODIES (01/05/2017 11:35 AM EDT) [facility] Signature HIV 1 AND 2 ANTIBODY SCREEN NEGATIVE NEGATIVE [facility] Comment: This assay is a 4th generation assay allowing for earlier detection of HIV infection by detecting the presence of the HIV-1 p24 antigen as well as the traditional antibodies to HIV type 1 (including group O) and type 2. Use of a 4th generation assay is the current CDC recommendation for HIV screening. Blood specimen (specimen) Blood / Unknown 01/05/2017 11:35 AM EDT 01/05/2017 1:36 PM EDT - 01/05/2017 7:24 PM EDT [facility] [address] [place] [address] PT ID [id number] ORD# [id number] Litzy De La Torre PROGRAM SUPPORT SPECIALIST LAB - BLOOD DRAW Final Resul t Performing Organization Address City/[facility] Co de Phone Number [address] [address], from Last 3 Months or Most Recently Relevant to Health Maintenance Insurance [facility] [place]ICAID DENTAL [address] [employer] Care Teams Naprapath Relationship Specialty Start Date End Date Olivier Guardado FNP [facility] [place] [address] PCP - General Family Medicine, HIGHWAY [employer]ROL COMMANDER 09/16/20
--- OUTSIDE RECORDS SUMMARY | 2024-11-20 14:41 | XMS_ITS | Clinical Summary ---
Author Organization [facility] Address [address] [facility] [address] [place] [address] Care Team Providers Care Force Adjustment Supervisor Name Role Phone Unavailable Primary Care Provider Unavailabl e Encounters Date Type Department Care Team Description 10/22/2024 Population Health Risk Score [facility] (C3) Department [address] [facility] [address] [place] [address] Provider, Population Health Generic from Last 3 Months Social History Tobacco Use Types Packs/Day Years Used Date Smoking Tobacco: Never Assessed Comments Unknown Sex and Gender Information Value Date Recorded Sex Assigned at Not on file Legal Sex Female 9:21 PM EDT Gender Identity Not on file Sexual Orientation Not on file Plan of Treatment Health Maintenance Due Date Last Done Comments CT Colonography 1973 Colonoscopy 1973 Colorectal Cancer Screening 1973 Depression Screening 1973 FIT DNA/Cologuard 1973 FIT 1973 FOBT 1973 Lipid Panel 1973 SDOH Screening 1973 Sigmoidoscopy 1973 Disability Screening 1973 Alcohol/Substance Use Screening 1985 Tobacco Screening 1985 Family Planning (PISQ) 1988 Hepatitis C Screening 1991 Hepatitis A Vaccines (1 of 2 - Risk 2-dose series) 1992 Hepatitis B Vaccines (1 of 3 - 19+ 3-dose series) 1992 Pap Smear 1994 Cervical Cancer Screening 2003 HPV/Cotest 2003 Mammogram 2013 Pneumococcal Vaccine: 50+ Years (1 of 1 - PCV) 2023 Zoster Vaccines (2 of 2) 11/28/2023 10/03/2023 COVID-19 Vaccine (2 - season) 2023 07/28/2020 Influenza Vaccine (#1) 2024 7, 06/06/2016, 02/02/2015, Additional history exists DTaP/Tdap/Td Vaccines (2 - Td or Tdap) 10/15/2025 10/16/2015 RSV Patients and Patients Aged 60 years or older (1 - 1-dose 75+ series) 2048 HIV Screening Completed 01/05/2017 HIB Vaccines Aged Out No longer eligi ble based on patient's age to complete this topic HPV Vaccines Aged Out No longer eligi ble based on patient's age to complete this topic IPV Vaccines Aged Out No longer eligi ble based on patient's age to complete this topic Meningococcal B Vaccine Aged Out No l onger eligible based on patient's age to complete this topic Meningococcal Vaccine Aged Out No michael naun eligible based on patient's age to complete this topic RSV under 20 months Aged Out No longe r eligible based on patient's age to complete this topic Rotavirus Vaccines Aged Out No longer eligible based on patient's age to complete this topic
== END 2024-11-20 14:52 | disposition home or self-care (01) ==
LOC: HO.RHES 13:46
PROVIDERS: PCP Physician Assistant; Visit Provider Student in an Organized Health Care Education/Training Program
DX: M79.7 Fibromyalgia (principal)
CPT/HCPCS: 99214

== ENCOUNTER → 2024-11-20 13:45 | Outpatient (BNVA) | payer MEDICAID, SELFPAY | PROVIDERS: PCP Physician Assistant; Visit Provider Student in an Organized Health Care Education/Training Program | DX: M79.7 Fibromyalgia (principal); E78.5 Hyperlipidemia, unspecified; F32.A Depression, unspecified | CPT/HCPCS: 99212 ==

== ENCOUNTER 2024-11-25 08:49 | Outpatient (AMB) | payer MEDICAID, SELFPAY ==
--- NOTE | 2024-11-25 09:00 | A.OFFVIS_ITS ---
Vital Signs 11/25/24 09:00 Height 5 ft 2 in Intake Visit Reasons: 6m Allergies Penicillins Allergy (Unknown, Verified 11/25/24 09:03) Rash Medication List - Last Reconciled 11/25/24 by Magdalene May CNP acetaminophen 1,000 mg PO Q6H PRN albuterol sulfate 90 mcg/actuation (Ventolin HFA) 2 puffs inhalation Q6H PRN aspirin 81 mg PO DAILY atorvastatin 40 mg PO DAILY cyclobenzaprine 10 mg PO BEDTIME PRN diclofenac sodium 1% (Arthritis Pain (diclofenac)) 4 grams topical QID 30 days levetiracetam 500 mg PO BID lidocaine 5% leave on most painful area for up to 12 hrs topically daily; 30 d ays mirtazapine 15 mg PO BEDTIME naltrexone 4.5 mg PO DAILY olanzapine 5 mg PO DAILY HPI Comments Details: 49 years old woman with complex partial seizure disorder with left temporal sharp waves on EEG. She had multiple episodes leading to fainting. One episode happened when she was having dinner with her children. Typically, she had a feeling of warmness or feeling hot despite not wearing warm clothes. She also remembered having some odd feeling or dizzy feeling. Sometimes, an episode ended with that feeling, and sometimes she passed out. One time in a restaurant she had the same feeling and then she woke up, and saw her children crying besides her. She was told that she passed out and before that there was some movements or abnormal activity around her mouth. She also urinated. Her routine EEG was ok. Amb EEG in Feb 2023 revealed some left temporal shap waves. She was seen at [facility] for symptoms of mini stroke about 2-3 weeks ago. She started with numbness and tingling to right hand, and difficulty closing her hand while driving. She pulled over and called her daughter, and then drove to her daughter's house which was about 5 minutes away. The numbness and tingling went up her arm after reaching her daughter's house. Her balance was off and she had trouble walking, and she was shaking all over. Her daughter brought her to the hospital. The numbness and tingling then spread to right leg while at the hospital. She says she always has a headache and had a headache at the time. No passing out or falls. The symptoms started around 3pm and she was better around 6pm. It has not happened again. She had MRI done at the hospital. No records were available for review at this time. She was prescribed Plavix for 21 days which she completed, and was taking aspirin 81mg. She had appointment with cardiology and had 30-day monitor. No recent seizures or spells, taking levetiracetam 500mg twice a day. She was still under a lot of stress, and was working psychiatrist and therapist. Sleep was up and down. [facility] Medical History (Updated 11/25/24 @ 09:19 by Magdalene May CNP) Chronic pain syndrome Fibromyalgia Nonintractable generalized 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 status epilepticus Moderate episode of recurrent major depressive disorder Hyperthyroidism Multiple thyroid nodules Colon cancer screening Enlarged liver Kidney cysts Pap smear for cervical cancer screening Mixed hyperlipidemia Prediabetes Cough Acute gastritis without bleeding Radiculopathy of lumbar region Adjustment disorder with mixed anxiety and depressed mood Obesity Epigastric pain PTSD (post-traumatic stress disorder) Polyarthralgia Family History Father Cancer Mother Diabetes Fibromyalgia Alzheimer dementia Social History Household Members: Children Housing: Apartment Alcohol intake: current Comment: Occassionally Patient Tobacco Use Status: Never used Tobacco Review of Systems Const Denies chills, Denies daytime sleepiness, Reports difficulty sleeping, Reports fatigue, Denies fever(s), Denies frequent falls, Denies headache(s), Denies increased appetite, Denies poor appetite, Denies snoring, Denies weakness, Denies weight gain and Denies weight loss Eyes Denies loss of vision ENT Denies vertigo, Denies dizziness and Denies headache(s) Card Denies chest pain at rest, Denies chest pain with activity, Denies syncope, Denies leg edema and Denies palpitations Resp Denies snoring GI Denies constipation, Denies heartburn, Denies diarrhea and Denies nausea Denies urinary frequency, Denies urinary incontinence and Denies urinary urgency Musc Denies abnormal gait, Denies numbness and Denies tingling Skin/Breast Denies dry skin and Denies rash Neuro Denies abnormal gait, Denies vertigo, Denies dizziness, Denies syncope, Denies frequent falls, Denies headache(s), Denies lack of coordination, Denies loss of vision, Denies memory loss, Denies numbness, Denies restless legs, Denies seizure-like activity, Denies tingling, Denies paresthesias, Denies tremor(s) and Denies weakness Psych Reports anxiety, Reports depression, Denies auditory hallucinations, Denies memory loss, Denies visual hallucinations and Denies suicidal ideation Endo Reports fatigue and Denies palpitations Physical Exam Const Other: General Appearance:? normal, in no acute distress. Skin:? no rashes, no significant birthmarks. Heart:? S1, S2 normal, no murmurs. Lungs:? clear anteriorly and posteriorly. Extremities:? no edema. Psych:? alert, oriented, cognitive function intact, cooperative with exam. Neuro Other: Mental Status:?Normal attention, orientation, memory and affect.? Cranial Nerves:?Pupils are equal, round and reactive to light. External occular muscles are intact. Visual singh are full. Face is symmetrical. Facial sensations are normal. Tongue is midline. Palate elevates symmetrically. Shoulder shrugging is normal. Hearing to bedside conversation is normal. Sensory Exam:?....? Coordination:?No ataxia,?no titubation.? Gait Exam: Within normal limits. Extrapyramidal System:?No tremor, rigidity with normal facial expressions.? Pronator Drift:?Not present.? Involuntary Movements:?No tremors seen.? Speech:?Normal.? Results Reviewed Results Reviewed: Routine EEG at [facility] in Jan 2023: WNL 48 hr EEG at [facility] in Feb 2023: Marianna lopez MRI brain WWO at [facility] in May 2023: WNL Assessment & Plan Assessment & Plan (1) Epilepsy: Code(s): G40.909 - Epilepsy, unspecified, not intractable, without status epilepticus Category: Medical Qualifiers: Epilepsy type: unspecified Intractability: not intractable Status epilepticus: without status epilepticus Qualified Code(s): G40.909 - Epilepsy, unspecified, not intractable, without status epilepticus Plan: Continue levetiracetam 500mg 1 tablet twice a day. (2) Complex partial seizure disorder: Code(s): G40.209 - Localization-related (focal) (partial) symptomatic epilepsy and epileptic syndromes with complex partial seizures, not intractable, without status epilepticus Category: Medical (3) History of TIA (transient ischemic attack): Code(s): Z86.73 - Personal history of transient ischemic attack (TIA), and cerebral infarction without residual deficits Category: Medical Plan: There were no records available for review at this time, and she did not have CD of MRI with her to review. She was advised to bring CD of MRI to next appointment for review. Will request records from [facility]. Continue low dose aspirin for now. She saw cardiology and currently had 30-day monitor, follow up with cardiology as planned. (4) Depression with anxiety: Code(s): F41.8 - Other specified anxiety disorders Category: Medical Plan . Coding Level of Care Code Est Pt Level 4 (11496) Diagnoses Nonintractable epilepsy without status epilepticus, unspecified epilepsy type G40.909 Epilepsy type: unspecified Intractability: not intractable Status epilepticus: without status epilepticus Complex partial seizure disorder G40.209 History of TIA (transient ischemic attack) Z86.73 Depression with anxiety F41.8
--- OUTSIDE RECORDS SUMMARY | 2024-11-25 09:20 | XMS_ITS | Clinical Summary ---
Author Organization [facility] Address [address] [place] [address] Care Team Providers Care Manager Battery Name Role Phone Unavailable Primary Care Provider Unavailabl e Encounters Date Type Department Care Team Description 10/22/2024 Population Health Risk Score [facility] (C3) Department [address] [place] [address] Provider, Population Health Generic from [...]
== END 2024-11-25 09:24 | disposition home or self-care (01) ==
LOC: HO.HSM 08:49
PROVIDERS: PCP Physician Assistant; Referring Provider Physician Assistant; Visit Provider Registered Nurse
DX: G40.909 Epilepsy, unspecified, not intractable, without status epilepticus (principal); G40.209 Localization-related (focal) (partial) symptomatic epilepsy and epileptic syndromes with complex partial seizures, not intractable, without status epilepticus; Z86.73 Personal history of transient ischemic attack (TIA), and cerebral infarction without residual deficits; F41.8 Other specified anxiety disorders
CPT/HCPCS: 99214

== ENCOUNTER → 2024-11-25 08:49 | Outpatient (BNVA) | payer MEDICAID, SELFPAY | PROVIDERS: PCP Physician Assistant; Referring Provider Physician Assistant; Visit Provider Registered Nurse | DX: G40.909 Epilepsy, unspecified, not intractable, without status epilepticus (principal); G40.209 Localization-related (focal) (partial) symptomatic epilepsy and epileptic syndromes with complex partial seizures, not intractable, without status epilepticus; Z86.73 Personal history of transient ischemic attack (TIA), and cerebral infarction without residual deficits; F41.8 Other specified anxiety disorders | CPT/HCPCS: 99212 ==